=== PATIENT | female | born 1975 | race Caucasian/White ===

== ENCOUNTER 2021-06-26 07:52 | Outpatient (REF) | payer OTHER, SELFPAY ==
[2021-06-26 11:13] LABS: MANUAL DIFF FLAG NO
[2021-06-26 11:38] LABS: Basophils Percent Auto 0.4 % (0-2); Eosinophils Absolute Auto 0.1 X10*3/uL (0.0-0.4); Eosinophils Percent Auto 2.1 % (0-4); Hematocrit 41.4 % (37.0-47.0); Hemoglobin 13.4 g/dl (12.0-16.0); Imm Gran Abs Auto 0.01 X10*3/uL (0.00-0.03); Imm Gran Pct Auto 0.2 % (0.0-0.4); Lymphocytes Absolute Auto 1.8 X10*3/uL (1.2-4.9); Mean Corpuscular HGB Conc 32.4 g/dl (31.0-35.0); Mean Corpuscular Hemoglobin 29.2 pg (27.0-33.0); Mean Corpuscular Volume 90.2 fL (80.0-98.0); Mean Platelet Volume 9.8 fL (9.4-12.3); Monocytes Absolute Auto 0.4 X10*3/uL (0.1-1.2); Monocytes Percent Auto 6.6 % (2-11); Neutrophils Absolute Auto 3.1 x10*3/uL (2.0-8.3); Neutrophils Percent Auto 57.7 % (45-73); Platelet Count 270 X10*3/uL (160-400); Red Blood Count 4.59 X10*6/uL (4.20-5.50); Red Cell Distribution Width 12.2 % (11.0-16.0); White Blood Count 5.3 X10*3/uL (4.8-10.8)
[2021-06-26 12:25] LABS: Alanine Aminotransferase 21 U/L (0-31); Albumin Level 4.3 g/dL (3.5-5.0); Alkaline Phosphatase 89 U/L (39-117); Anion Gap 11 (12-20); Aspartate Amino Transferase 15 U/L (5-31); Bilirubin Total 0.3 mg/dL (0.0-1.0); Blood Urea Nitrogen 14 mg/dL (9-16); Calcium 9.4 mg/dL (8.4-10.2); Carbon Dioxide 27 mmol/L (22-29); Chloride 105 mmol/L (96-108); Cholesterol 229 mg/dL; Estimated Glomerular Filt Rate > 60; Glucose Fasting 94 mg/dL (60-99); HDL Cholesterol 47 mg/dL; LDL Cholesterol Calculated 159 mg/dl; Potassium 4.3 mmol/L (3.3-5.1); Sodium 139 mmol/L (135-145); Total Protein 6.9 g/dL (6.5-8.0); Triglycerides 118 mg/dL
[2021-06-26 12:47] LABS: Vitamin D 25-OH Total 32.5 ng/mL (>30)
[2021-06-26 13:20] LABS: Vitamin B12 562 pg/mL (200-900)
== END 2021-06-26 07:53 | disposition home or self-care (01) ==
LOC: HO.MANLDS 07:52
PROVIDERS: PCP Internal Medicine; Visit Provider Internal Medicine
DX: Z00.00 Encounter for general adult medical examination without abnormal findings (principal)
CPT/HCPCS: 36415; 80053; 80061; 82306; 82607; 85025

== ENCOUNTER 2023-02-03 10:54 | Outpatient (REF) | payer OTHER, SELFPAY ==
[2023-02-03 13:17] LABS: MANUAL DIFF FLAG NO
[2023-02-03 13:47] LABS: Basophils Percent Auto 0.4 % (0-2); Eosinophils Absolute Auto 0.1 X10*3/uL (0.0-0.4); Eosinophils Percent Auto 1.6 % (0-4); Hematocrit 39.6 % (37.0-47.0); Hemoglobin 13.2 g/dl (12.0-16.0); Imm Gran Abs Auto 0.02 X10*3/uL (0.00-0.03); Imm Gran Pct Auto 0.4 % (0.0-0.4); Lymphocytes Absolute Auto 1.8 X10*3/uL (1.2-4.9); Mean Corpuscular HGB Conc 33.3 g/dl (31.0-35.0); Mean Corpuscular Hemoglobin 29.2 pg (27.0-33.0); Mean Corpuscular Volume 87.6 fL (80.0-98.0); Monocytes Absolute Auto 0.3 X10*3/uL (0.1-1.2); Monocytes Percent Auto 6.4 % (2-11); Neutrophils Absolute Auto 2.9 x10*3/uL (2.0-8.3); Neutrophils Percent Auto 57.2 % (45-73); Platelet Count 224 X10*3/uL (160-400); Red Blood Count 4.52 X10*6/uL (4.20-5.50); Red Cell Distribution Width 12.1 % (11.0-16.0); White Blood Count 5.1 X10*3/uL (4.8-10.8)
[2023-02-03 14:37] LABS: Alanine Aminotransferase 21 U/L (0-31); Albumin Level 4.2 g/dL (3.5-5.0); Alkaline Phosphatase 81 U/L (39-117); Anion Gap 10 (12-20); Aspartate Amino Transferase 20 U/L (5-31); Bilirubin Total 0.3 mg/dL (0.0-1.0); Blood Urea Nitrogen 10 mg/dL (9-16); Calcium 9.2 mg/dL (8.4-10.2); Carbon Dioxide 27 mmol/L (22-29); Chloride 106 mmol/L (96-108); Cholesterol 211 mg/dL (<200); Estimated Glomerular Filt Rate > 60; Glucose Random 87 mg/dL (60-115); HDL Cholesterol 46 mg/dL (>40); LDL Cholesterol Calculated 146 mg/dL (<100); Potassium 3.9 mmol/L (3.3-5.1); Sodium 139 mmol/L (135-145); Total Protein 6.9 g/dL (6.5-8.0); Triglycerides 98 mg/dL (<150)
[2023-02-03 14:55] LABS: Thyroid Stimulating Hormone 1.27 uIU/mL (0.32-4.0); Vitamin D 25-OH Total 34.3 ng/mL (>30)
== END 2023-02-03 10:55 | disposition home or self-care (01) ==
LOC: HO.MANLDS 10:54
PROVIDERS: Visit Provider Internal Medicine
DX: Z00.00 Encounter for general adult medical examination without abnormal findings (principal)
CPT/HCPCS: 36415; 80053; 80061; 82306; 84443; 85025

== ENCOUNTER 2023-08-14 15:09 | Outpatient (REF) | payer OTHER, SELFPAY ==
[2023-08-14 17:34] LABS: MANUAL DIFF FLAG NO
[2023-08-14 18:12] LABS: Alanine Aminotransferase 23 U/L (0-31); Albumin Level 4.4 g/dL (3.5-5.0); Alkaline Phosphatase 95 U/L (39-117); Anion Gap 15 (12-20); Aspartate Amino Transferase 18 U/L (5-31); Bilirubin Total 0.4 mg/dL (0.0-1.0); Blood Urea Nitrogen 9 mg/dL (9-16); C Reactive Protein 0.62 mg/dL (< or = 0.50); Calcium 9.9 mg/dL (8.4-10.2); Carbon Dioxide 26 mmol/L (22-29); Chloride 103 mmol/L (96-108); Estimated Glomerular Filt Rate > 60; Glucose Random 85 mg/dL (60-115); Iron 78 mcg/dL (30-160); Percent Iron Saturation 23 % (15-50); Potassium 4.7 mmol/L (3.3-5.1); Sodium 139 mmol/L (135-145); Total Iron Binding Capacity 338 mcg/dL (228-428); Total Protein 7.4 g/dL (6.5-8.0); Unsaturated Iron Binding 260 ug/dL
[2023-08-14 18:30] LABS: Ferritin 133 ng/mL (10-250); Free T4 (Free Thyroxine) 0.78 ng/dL (0.71-1.85); Thyroid Stimulating Hormone 1.47 uIU/mL (0.32-4.0)
[2023-08-14 19:17] LABS: Erythrocyte Sedimentation Rate 9 MM/HR (0-20)
[2023-08-14 19:35] LABS: Basophils Percent Auto 0.3 % (0-2); Eosinophils Absolute Auto 0.1 X10*3/uL (0.0-0.4); Hematocrit 40.3 % (37.0-47.0); Hemoglobin 13.5 g/dl (12.0-16.0); Imm Gran Abs Auto 0.02 X10*3/uL (0.00-0.03); Imm Gran Pct Auto 0.3 % (0.0-0.4); Lymphocytes Absolute Auto 1.8 X10*3/uL (1.2-4.9); Lymphocytes Percent Auto 26.5 % (20-40); Mean Corpuscular HGB Conc 33.5 g/dl (31.0-35.0); Mean Corpuscular Hemoglobin 29.7 pg (27.0-33.0); Mean Corpuscular Volume 88.8 fL (80.0-98.0); Mean Platelet Volume 9.9 fL (9.4-12.3); Monocytes Absolute Auto 0.4 X10*3/uL (0.1-1.2); Neutrophils Absolute Auto 4.4 x10*3/uL (2.0-8.3); Neutrophils Percent Auto 65.9 % (45-73); Platelet Count 240 X10*3/uL (160-400); Red Blood Count 4.54 X10*6/uL (4.20-5.50); Red Cell Distribution Width 11.9 % (11.0-16.0); White Blood Count 6.7 X10*3/uL (4.8-10.8)
== END 2023-08-14 15:10 | disposition home or self-care (01) ==
LOC: HO.MANLDS 15:09
PROVIDERS: Visit Provider Physician Assistant
DX: R06.09 Other forms of dyspnea (principal); R00.0 Tachycardia, unspecified
CPT/HCPCS: 36415; 80053; 82728; 83540; 84439; 84443; 85025; 85652; 86140

== ENCOUNTER 2024-08-26 07:34 | Outpatient (REF) | payer OTHER, SELFPAY ==
--- OUTSIDE RECORDS SUMMARY | 2024-08-26 07:37 | XMS_ITS | Continuity of Care Document ---
Author Organization [facility], [facility] Address [address] [place] [address] Assessment Encounter Date Assessment Date Assessment LastModified by Organization Details LastModified Time 08/24/2024 08/24/2024 [address] [place] [id number] (MEDICAL ADVISOR) MDM MODERATE MUST MEET 2 OUT OF 3 ELEMENTS: PROBLEMS, DATA OR RISK ELEMENT 1: PROBLEMS ADDRESSED 1 OR MORE CHRONIC ILLNESS WITH EXACERBATION OR 2 OR MORE STABLE CHRONIC ILLNESSES OR 1 UNDIAGNOSED NEW PROBLEM OR 1 ACUTE ILLNESS W/SYMPTOMS OR 1 ACUTE COMPLICATED INJURY ELEMENT 2: DATA MUST MEET 1 OF 3 CATEGORIES CATEGORY 1: REVIEW OF PRIOR EXTERNAL NOTES, REVIEW OF RESULTS, ORDERING OF EACH TEST, ASSESSMENT REQUIRING INDEPENDENT HISTORIAN OR CATEGORY 2: INDEPENDENT INTERPRETATION OF TESTS BY ANOTHER PHYSICIAN OR SPECIALIST OR CATEGORY 3: DISCUSSION OF MGT OR TEST INTERPRETATION W/EXTERNAL PHYSICIAN OR SPECIALIST ELEMENT 3: RISK RISK OF COMPLICATIONS AND/OR MORBIDITY OR MORTALITY OF PATIENT MANAGEMENT PROVIDER MUST THOROUGHLY DOCUMENT EACH ELEMENT THAT IS COVERED [email or web address] Not available 08/24/2024 16:51:48 Plan of Treatment Reminders Order Date Submit Date Provider Last Modified By Organization Details Last Modified Time Details Appointments None recorded. Lab YADIRA + rf (antinucle ar antibodies + rheumatoid factor), quantitati ve, serum 2024 025 [facility], [address] [place] [address], [place], [address], 17:00:21 C-reactive protein, quantitati ve, serum or plasma 2024 025 [facility], [address] [place] [address], [place], [address], 5 17:00:21 ESR (erythrocy te sedimentat ion rate), blood 2024 [facility], [address] [place] [address], [address], 5 17:00:21 lyme disease igg+igm, serum, reflex western blot 2024 [facility], [address] [place] [address], [address], 5 17:00:21 parvovirus B19 igg+igm Ab, serum 2024 [facility], [address] [place] [address], [address], 5 17:00:49 Referral None recorded. Procedures None recorded. Surgeries None recorded. Imaging MRI, knee, w/o contrast 2024 [email or web address] [facility], [address], [facility] [address], [place], [address], 16:49:16 Medication Orders None recorded. Patient TargetsNo targets recorded. Patient InstructionsNo instructions recorded. Reason for Referral None Reported. Problems Name Problem SNOMED Code Status Onset Date Resolution Date Notes Provider Name and Address Organization Details Recorded Time Mild depressio n 724459931 Active 2018 Not Available [facility] 14:43:20 Insomnia 986985340 Active 2018 Not Available [facility] 14:43:20 Vertigo 554081664 Active 2018 Not Available [facility] 14:43:20 Pain of hip region 14028163 Active 2018 Not Available [facility] 14:43:20 Low back pain 807883850 Active 2018 Not Available [facility] 14:43:20 Immunoglo bulin A1 deficienc y 401139601 Active 2018 Not Available [facility] 14:43:20 Hypersomn ia with sleep apnea 06284532 Active 2020 Not Available [facility] 14:43:20 Acute maxillary sinusitis 92550755 Active 2021 SELENA WILHELM [address] [place], [address], [facility] 2 11:05:44 COVID-19 725444904 Active 2021 Alexis Tristan, [address] [place] [address], [address], [facility] 2 11:55:14 Pain of left shoulder joint 425253876450 97413 Active 2022 SELENA WILHELM [address] [place] [address], [address], [facility] 3 11:22:02 Influenza caused by Influenza A virus 221834839 Active 2023 SELENA WILHELM [address] [place] [address], [address], [facility] 4 11:09:31 Depressiv e disorder 98868106 Active 2023 SELENA WILHELM [address] [place] [address], [address], [facility] 4 14:57:32 Dyspnea on exertion 79461761 Active 2023 SELENA WILHELM [address] [place] [address], [address], [facility] 4 14:57:48 Tachycard ia 0837583 Active 2023 SELENA WILHELM [address] [place] [address], [address], [facility] 4 15:00:22 Immunodef iciency disorder 180217200 Active 2023 SELENA WILHELM [address] [place] [address], [address], [facility] 4 15:02:26 Lateral epicondyl itis of right humerus 364158080944 107 Active 2023 Alexis Tristan DO [address] [place] [address], [address], [facility] 4 09:58:08 Neck pain 49251720 Active 2024 SELENA WILHELM [address] [place] [address], [address], [facility] 5 15:31:41 Pain of right shoulder joint 333485972860 37196 Active 2024 SELENA WILHELM [address] [place] [address], [address], [facility] 5 15:31:51 Pain in left foot 697239109191 107 Active 2024 SELENA WILHELM [address] [place] [address], [address], [facility] 5 15:34:06 Clavicle pain 749833775 Active 2024 SELENA WILHELM [address] [place] [address], [address], [facility] 5 15:34:16 Muscle pain 52036348 Active 2024 SELENA WILHELM [address] [place] [address], [address], [facility] 5 15:37:31 Pain of multiple joints 69430499 Active 2024 Alexis Tristan DO [address] [place] [address], [address], [facility] 5 16:48:23 Problem Notes None recorded. Procedures Surgical History Date Name Laterality Status Provider Name and Address Organization Details Recorded Time 024 Corticosteroid Injection completed Alexis Tristan DO [address] [place] [address], [address], [facility] 02/16/2024 15:40:16 017 Date of Last Pap Smear completed Emely Kathleen [facility] 12/27/2018 10:37:47 Imaging Results None recorded. Procedure Notes None recorded. Medical Equipment None Reported. Allergies Allergen ID Allergen Name Allergen Category Reaction Reaction Severity Criticality Documentation Date Start Date Code Code System Note Provider Name and Address Organization Details Recorded Time 3501 bupropion Not available Not available Not available Not available 12/27/2018 28730 RxNorm easy bruis ing Janice Dallas garcia [facility] 2 10:30:52 3594 Bactrim medicatio n Not available Not available Not available 02/28/2019 08421 9 RxNorm Maxwell bp Marj Constantinogavi garcia [facility] 9 16:12:47 Medications Name Sig Start Date Stop Date Status Note LastModified by Organization Details LastModified Time amoxicillin 500 mg capsule 02/03 completed Not Available Not Available Not Available terconazole 0.4 % vaginal cream PLACE 1 APPLICATO R VAGINALLY NIGHTLY AT BEDTIME FOR 7 DAYS 06/18 completed Not Available Not Available Not Available doxycycline hyclate 100 mg capsule Take 1 capsule twice a day by oral route for 7 days. 05/13 completed Not Available Not Available Not Available azithromyci n 250 mg tablet TAKE 2 TABLETS (500 MG) BY ORAL ROUTE ONCE DAILY FOR 1 DAY THEN 1 TABLET (250 MG) BY ORAL ROUTE ONCE DAILY FOR 4 DAYS 02/03 completed Not Available Not Available Not Available citalopram 10 mg tablet TAKE 1 TABLET BY MOUTH EVERY DAY 08/13 completed Not Available Not Available Not Available meloxicam 15 mg tablet TAKE 1 TABLET BY MOUTH EVERY DAY FOR 30 DAYS 07/19 completed Not Available Not Available Not Available meclizine 12.5 mg tablet TAKE 1 TABLET BY MOUTH THREE TIMES DAILY FOR 14 DAYS 02/03 completed Not Available Not Available Not Available baclofen 20 mg tablet TAKE 1 TABLET BY MOUTH THREE TIMES A DAY NEEDED FOR 14 DAYS active Not Available Not Available No t Available cefadroxil 500 mg capsule 10/03 completed Not Available Not Available Not Available lorazepam 0.5 mg tablet Take 1 tablet 3 times a day by oral route as needed for 10 days. 08/27 completed Not Available Not Available Not Available doxycycline monohydrate 100 mg capsule 02/08 completed Not Available Not Available Not Available cephalexin 500 mg capsule 06/18 completed Not Available Not Available Not Available oseltamivir 75 mg capsule TAKE 1 CAPSULE BY MOUTH TWICE A DAY FOR 5 DAYS 08/13 completed Not Available Not Available Not Available diclofenac sodium 75 mg tablet,pauline yed release TAKE 1 TABLET BY MOUTH TWICE A DAY WITH MEALS 2024 active Not Available Not Available Not Avai lable lorazepam 1 mg tablet 12/27 completed Not Available Not Available Not Available zolpidem 10 mg tablet TAKE 1 TABLET BY MOUTH EVERY DAY FOR 14 DAYS active Not Available Not Available No t Available methylpredn isolone 4 mg tablets in a dose pack FOLLOW PACKAGE DIRECTION S 02/03 completed Not Available Not Available Not Available doxycycline hyclate 100 mg tablet 12/27 completed Not Available Not Available Not Available amoxicillin 875 mg-potassiu m clavulanate 125 mg tablet TAKE 1 TABLET BY MOUTH EVERY 12 HOURS FOR 7 DAYS 02/03 completed Not Available Not Available Not Available Afluria Quad 60 mcg (15 mcg x 4)/0.5 mL intramuscul ar susp. 03/04 completed Not Available Not Available Not Available Afluria Qd (36 mos up)(PF)60 mcg (15 mcg x4)/0.5 mL IM syringe ADM 0.5ML IM UTD 04/02 completed Not Available Not Available Not Available Vitals Date Recorded Body height Body mass index (BMI) Body weight Heart rate Oxygen saturation Oxygen saturation in Arterial blood by Pulse oximetry Systolic blood pressure Diastolic blood pressure Provider Name and Address Organization Details Last Updated DateTime 5 171.45 cm 51.2 kg/m2 444829. 67 g 94 /min 98 % 98 % 140 mm[Hg] 80 mm[Hg] Destiny Osuna [facility] 5 16:25:14 Social History Question Answer Notes LastModified by Organizat ion Details LastModified Time Tobacco Smoking Status Never Smoker Alexis Tristan, DO [address] [facility], [place], [address], [place] [facility] 12/27/2018 16:02:33 What Was The Date Of Your Most Recent Tobacco Screening? 08/24/2024 Information not available 08/24/2024 Sex: Unknown Functional Status None recorded. Mental Status None recorded. Family History Nothing Reported. Medical History No medical history recorded. Gynecological History Statement/Question Response Date of Last Pap Smear 10/21/2016 Obstetrics History GPAL:G 0 P 0 0 0 0 Immunizations Vaccine Type Date Status Note Provider Nam e and Address Organization Details Recorded Time Influenza, split virus, quadrivalent, preservative 1 completed Alexis Tristan DO [address] [place] [address], [address], [facility] 02/03/2021 16:05:34 SARS-COV-2 (COVID-19) vaccine, UNSPECIFIED 5 completed Aime Tristan [facility] 04/29/2024 09:07:55 Influenza, [place] 5 completed Aime Tristan [facility] 04/29/2024 09:08:07 Tdap 1 completed Emely Kathleen [facility] 12/27/2018 10:35:05 Influenza, split virus, quadrivalent, preservative 9 completed Janice Haynes [facility] 03/04/2019 09:16:23 Influenza, split virus, quadrivalent, preservative 0 completed Emely Kathleen [facility] 01/20/2020 15:48:23 Influenza, split virus, quadrivalent, preservative 0 completed Emely Kathleen [facility] 01/20/2020 15:48:34 COVID-19, mRNA, LNP-S, PF, 100 mcg/0.5mL dose or 50 mcg/0.25mL dose 1 completed SELENA WILHELM [address] [place] [address], [address], [facility] 08/27/2020 14:15:38 Past Encounters Encounter ID Performer Location Encounter Start Date Encounter Closed Date Diagnosis/Indication Diagnosis SNOMED-CT Code Diagnosis ICD10 Code Diagnosis Note [id number] Alexis Tristan DO [facility] [address],[place] [address] 08/24/2024 16:16:16 08/24/2024 16:51:56 Depression screening 859475414 Z13.31 neg Instabilit y of joint of right knee 6232637790 762419 M23.51 Pain of mu ltiple joints 79969651 M25.50 Health Concerns Section Related Observation LastModified by Organization Detai ls LastModified Time None Recorded Concern Status LastModified by Organization Details LastModified Time None Recorded Payers Encounter Date Sequence Insurance Name Policy Number Policy Barrios Covered Member ID Barrios Member ID Guarantor Name 08/24/2024 1 [facility] (O) [id number] 1 Jed Hollis [id number] Venecia tafoya OBGyn Episode No OBEpisode recorded.
--- OUTSIDE RECORDS SUMMARY | 2024-08-26 07:37 | XMS_ITS | Data Portability ---
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 Reminded 11 days to full protection from with Mirena or Emily. Reasons to comeback include increasing pain, discharge, fever. Nothing in vagina 3-5 days . Return to office for string check if cannot find string 6 weeks. edison Not available 10/20/2016 15:48:46 Plan of Treatment Reminders Order Date Submit Date Provider Last Modified By Organization Details Last Modified Time Details Appointments None recorde d. Lab CT + NG RNA, PCR, unspeci fied specime n 2016 017 [facility], [address] [facility], [place], [address], 7 13:58:17 biopsy, tissue - skin tag Lt hip/low er back 2016 017 [facility] [address] [place], [address], 7 11:14:57 Referral general surgeon referra l - pt with bleedin g pyogeni c granulo ma left posteri or waste at pant line, acitvel y bleedin g. confirm ed by [place] [facility] 2016 017 JAGUAR Olivera MD, [address], [place], [address], 7 08:33:28 Procedures destruc tion of benign lesions (PROC) 2016 017 mmastroberti Not available 7 10:38:00 Surgeries None recorde d. Imaging None recorde d. Medication Orders acyclov ir 800 mg tablet 2016 017 INTERFACE [id number], [address] [place], [address], 7 10:49:26 Patient TargetsNo targets recorded. Patient InstructionsNo instructions recorded. Reason for Referral General Surgeon Referral for Pyogenic granuloma of skin pt with bleeding pyogenic granuloma left posterior waste at pant line, acitvely bleeding. confirmed by biopsy [place] [facility] Referring Physician: Bobbi Freeman, Family Medicine, Encounter Date: 08/26/2016 Results Created Date Observation Date Name Description Value Unit Range Abnormal Flag Note LastModifiedBy Organization Detail LastModifiedTime 10/22/19 17 10/22/2016 CT + NG RNA, PCR, unspe cifie d speci men N. gonorrhoeae Neg negati ve Not Available [address], [address], 10/22/2016 13:58:16 10/22/19 17 10/22/2016 CT + NG RNA, PCR, unspe cifie d speci men C. trachomatis Neg negati ve Not Available [address], [address], 10/22/2016 13:58:16 Result Notes None recorded. Problems Name Problem SNOMED Code Status Onset Date Resolution Date Notes Provider Name and Address Organization Details Recorded Time Diarrhea 34466457 Completed 03/02/2013 Not Available [facility] 3 02:02:16 Major depression , melancholi c type 921642193 Completed 01/28/2016 Isabella Barcenas NP [address] [place] [address], [phone] , [facility] 6 12:13:54 Low back pain 326975933 Active Not Available [facility] 3 03:14:31 Acute pharyngiti s 685612392 Completed 03/02/2013 Not Available [facility] 3 02:01:17 Abdominal pain 40046519 Completed 03/02/2013 Not Available [facility] 3 02:01:23 Verruca vulgaris 39460552 Completed 03/02/2013 Not Available [facility] 3 02:02:14 Insomnia 402173055 Active Not Available [facility] 3 03:14:31 Benign paroxysmal positional vertigo 293231400 Active Not Available [facility] 3 03:14:31 Pain of hip region 02056722 Active JUDY Luna [address] [place] [address], [phone] , [facility] 6 10:59:10 Mild recurrent major depression 81457109 Active 2015 Isabella Barcenas NP [address] [place] [address], [phone] , [facility] 6 12:13:50 Problem Notes None recorded. Procedures Surgical History Date Name Laterality Status Provider Name and Address Organization Details Recorded Time 7 POC hCG Testing completed Brenda Villarreal [facility] [place] 10/20/2016 15:56:14 7 IUD Insertion completed Moi Valverde MD [address] [place] [address], [phone], [facility] 10/21/2016 15:06:03 7 Skin Tag Removal (up to 15) completed JUDY Luna [address] [place] [address], [phone], [facility] 08/13/2016 15:39:59 6 POC Strep Testing completed Rupali Lowry LPN [facility] [place] 04/02/2016 11:37:01 6 POC Strep Testing completed Alize Nguyễn [place] [facility] [place] 01/24/2016 11:44:04 6 POC Urinalysis Testing completed Alize Nguyễn, [facility] 01/24/2016 11:44:11 6 Carbon Monoxide Testing completed Rupali Lowry LPN [facility] [place] 07/25/2015 10:03:46 2 IUD Insertion completed Moi Valverde MD [address] [place], [address], [facility] 10/25/2011 13:52:19 2 IUD Removal completed Moi Valverde MD [address] [place] [address], [phone], [facility] 10/25/2011 13:52:19 Imaging Results None recorded. Procedure Notes None recorded. Medical Equipment None Reported. Allergies Allergen ID Allergen Name Allergen Category Reaction Reaction Severity Criticality Documentation Date Start Date Code Code System Note Provider Name and Address Organization Details Recorded Time [id number] bupropion Not available Not available Not available Not available 04/02/2016 13888 RxNorm feels like I'm in a tunne l Rupali Lowry LPN [facility] 6 11:02:05 No known drug allergies Medications Name Sig Start Date Stop Date Status Note LastModified by Organization Details LastModified Time amoxicill in 500 mg capsule TAKE ONE CAPSULE BY MOUTH EVERY 8 HOURS UNTIL FINISHED 06/17 completed Not Available Not Available Not Available Augmentin 875 mg-125 mg tablet Take 1 tablet every 12 hours by oral route for 7 days. 03/12 completed Not Available Not Available Not Available trazodone 50 mg tablet Take 1 or 2 tablet(s ) at night for sleep by oral route. 08/26 completed Not Available Not Available Not Available azithromy abbi 250 mg tablet Take 2 tablet(s ) today,th en 1 tab on day 2-5 active Not Available Not Available No t Available sumatript an 100 mg tablet TAKE 1 TABLET BY MOUTH EVERY DAY NEEDED active Not Available Not Available No t Available Diflucan 150 mg tablet Take 1 tablet(s ) by oral route for 1 day; if still symptoma tic on day3, ok to take 2nd pill 2012 active Not Available Not Available Not Avai lable metronida zole 500 mg tablet Take 1 tablet twice a day by oral route for 7 days. 12/02 completed Not Available Not Available Not Available acyclovir 800 mg tablet Take 1 tablet every 4 hours by oral route for 7 days. 2016 active Not Available Not Available Not Avai lable sodium chloride 0.9 % irrigatio n solution active 09/14/16 not taking SR Not Available Not Available Not Available oxycodone -acetamin ophen 5 mg-325 mg tablet TAKE 1 TABLET BY MOUTH EVERY 4-6 HOURS NEEDED FOR PAIN active Not Available Not Available No t Available amoxicill in 875 mg tablet Take 1 tablet every 12 hours by oral route for 7 days. active Not Available Not Available No t Available citalopra m 20 mg tablet Take 1/2 tablet qd x 7d, then 1tab qd 2012 active pt stopped med Not Available Not Available Not Available lorazepam 0.5 mg tablet Take 1 tablet twice a day by oral route as needed for 1 day. 08/06 completed Not Available Not Available Not Available antipyrin e-benzoca ine 5.4 %-1.4 % ear drops Instill 2 drops every 2 hours by otic route for 5 days. 06/26 completed Not Available Not Available Not Available hydrocodo ne 5 mg-acetam inophen 500 mg tablet Take 1 tablet every 4 hours by oral route. 2008 active Not Available Not Available Not Avai lable codeine 10 mg-guaife nesin 100 mg/5 mL oral liquid Take 10 mL every 4 hours by oral route. 2012 active Not Available Not Available Not Avai lable zolpidem 5 mg tablet Take 1 tablet every day by oral route at bedtime for 30 days. 05/10 completed Not Available Not Available Not Available diazepam 10 mg tablet TAKE 1 TABLET BY MOUTH 1 HOUR BEFORE SURGERY WITH SMALL SIP OF WATER active Not Available Not Available No t Available Ciprodex 0.3 %-0.1 % ear drops,celena pension Instill 4 drops twice a day by otic route for 7 days. 05/02 completed Not Available Not Available Not Available bupropion HCl XL 150 mg 24 hr tablet, extended release TAKE 1 TABLET BY MOUTH EVERY DAY 04/02 completed Not Available Not Available Not Available multivita min 1 tab daily active Not Available Not Available No t Available Fluvirin (PF) 45 mcg (15 mcg x 3)/0.5 mL IM syringe inject 0.5 millilit er intramus cularly active Not Available Not Available No t Available Afluria (PF) 45 mcg(15 mcg x 3)/0.5 mL intramusc ular syringe inject 0.5 millilit er intramus cularly 08/26 completed Not Available Not Available Not Available Vitals Date Recorded Body height Oxygen saturation Oxygen saturation in Arterial blood by Pulse oximetry Body temperature Provider Name and Address Organization Details Last Updated DateTime 06/17/2016 170.18 cm 96 % 96 % 98.5 [degF] Ingrid King [facility] 7 10:20:26 Date Recorded Systolic blood pressure Diastolic blood pressure Provider Name and Address Organization Details Last Updated DateTime 06/17/2016 120 mm[Hg] 84 mm[Hg] Jed Hannah MD [address] [place] [address], [phone], [facility] [place] 06/17/2016 10:47:38 Date Recorded Body height Heart rate Systolic blood pressure Diastolic blood pressure Provider Name and Address Organization Details Last Updated DateTime 08/12/2016 170.18 cm 66 /min 120 mm[Hg] 68 mm[Hg] Rupali Lowry LPN [facility] [place] 08/12/2016 10:34:59 Date Recorded Body height Systolic blood pressure Diastolic blood pressure Provider Name and Address Organization Details Last Updated DateTime 08/26/2016 170.18 cm 116 mm[Hg] 72 mm[Hg] Jenifer Jj [facility] [place] [facility] 08/26/2016 11:57:08 Date Recorded Body height Heart rate Systolic blood pressure Diastolic blood pressure Provider Name and Address Organization Details Last Updated DateTime 09/14/2016 170.18 cm 80 /min 110 mm[Hg] 58 mm[Hg] Minal Kearns [facility] 09/14/2016 10:43:16 Date Recorded Body height Systolic blood pressure Diastolic blood pressure Provider Name and Address Organization Details Last Updated DateTime 10/20/2016 170.18 cm 130 mm[Hg] 80 mm[Hg] Brenda Villarreal [facility] [place] 10/20/2016 15:59:00 Social History Question Answer Notes LastModified by Organizat ion Details LastModified Time Tobacco Smoking Status Never Smoker Not Available [facility] 02/27/2011 04:49:55 Do You Wear A Helmet When Biking? Yes Information not available 01/03/2015 What Is Your Level Of Caffeine Consumption? Moderate 01/03/15-2 Cups Coffee-ac Information not available 01/03/2015 How Much Tobacco Do You Chew? None Information not available 10/17/2014 What Type Of Diet Are You Following? REGULAR 01/03/15-m ore Veggies-a c Information not available 01/03/2015 Which Illicit Or Recreational Drugs Have You Used? No Information not available 01/03/2015 Education 4 Year College Information not available 01/03/2015 How Many Days In The Past Year Have You Had A Heavy Drinking Consumption (4+ Female, 5+ Male)? 0 Information not available 10/17/2014 Are There Any Guns Present In Your Home? No Information not available 01/03/2015 Live Alone Or With Others? With Others Information not available 01/03/2015 Patient Has Health Care Proxy Signed And In Chart No 01/03/15-f orms Given-ac Information not available 01/03/2015 Marital Status Information not available 02/27/2011 Mosquito Repellent Used Routinely Yes Information not available 01/03/2015 How Many Children Do You Have? 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 No Information not available 01/03/2015 Smoke Alarm In Home Yes Information not available 01/03/2015 What Types Of Sporting Activities Do You Participate In? No Information not available 01/03/2015 General Stress Level High 01/03/15-t remendous Stress-ac [email or web address] Information not available 09/21/2014 Do You Use Sunscreen Routinely? Yes Information not available 01/03/2015 Sex: Unknown Functional Status Question Answer Note LastModified by Organizat ion Details LastModified Time What is your level of alcohol consumption? 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 Family History Nothing Reported. Medical History No medical history recorded. Gynecological HistoryNo gynecological history recorded. Obstetrics History GPAL:G 0 P 0 0 0 0 Immunizations Vaccine Type Date Status Note Provider Nam e and Address Organization Details Recorded Time Influenza, split virus, quadrivalent, PF 3 completed Not Available [facility] 04/30/2019 02:18:56 influenza, seasonal, intradermal, preservative free 3 completed Not Available [facility] 05/14/2019 02:10:38 Influenza, split virus, quadrivalent, PF 6 completed Rupali Lowry LPN [facility] 05/09/2015 10:46:46 influenza, unspecified formulation 6 completed Abbie Umanzor [place] null, [facility] [place] 01/21/2016 08:21:13 influenza, unspecified formulation 9 completed SHANE DodgeLa Nena [facility] 02/23/2019 09:39:11 Influenza, split virus, trivalent, preservative 1 completed Not Available [facility] 04/30/2019 02:18:06 Tdap 1 completed Not Available [facility] 04/30/2019 02:27:45 Past Encounters Encounter ID Performer Location Encounter Start Date Encounter Closed Date Diagnosis/Indication Diagnosis SNOMED-CT Code Diagnosis ICD10 Code Diagnosis Note [id number] Ok Mckee MD , [facility], [address] [place] [address] 08/17/2006 17:51:21 08/18/2006 08:19:33 [id number] Ok Yoo MD , [facility], [address] [place] [address] 08/24/2008 14:58:56 08/29/2008 10:37:17 [id number] Umang Pierre MD , [facility], [address] [place] [address] 08/30/2008 12:31:54 08/31/2008 11:20:06 [id number] ELVER Hodges, [facility], [address] [place] [address] 06/11/2009 11:30:13 06/13/2009 10:34:09 [id number] [facility] Radiology , [facility] [address] [place] [address] 06/11/2009 14:09:31 06/13/2009 15:04:01 [id number] ELVER Johnson, [facility], [address] [place] [address] 12/04/2009 14:27:50 12/06/2009 11:09:33 [id number] ELVER Johnson, [facility], [address] [place] [address] 05/10/2010 08:24:42 05/10/2010 11:57:57 [id number] ELVER Johnson, [facility], [address] [place] [address] 06/11/2010 16:08:22 06/17/2010 09:38:11 [id number] ELVER Johnson, [facility], [address] [place] [address] 11/06/2010 16:46:09 11/06/2010 17:28:05 [id number] ELVER Hodges, [facility], [address] [place] [address] 11/18/2010 12:03:30 11/18/2010 13:06:12 [id number] MD GAURI Posada, [facility], [address] [place] [address] 01/27/2011 08:15:49 01/27/2011 09:38:49 [id number] [facility] RADIOLOGY [facility] [address] [place] [address] 01/27/2011 08:43:06 01/28/2011 14:49:57 [id number] JUDY Luna, [facility], [address] [place] [address] 08/06/2011 11:33:53 08/06/2011 12:37:05 [id number] JUDY Luna , [facility], [address] [place] [address] 08/20/2011 16:38:25 08/20/2011 17:35:25 [id number] JUDY Luna FP, [facility], [address] [place] [address] 09/10/2011 16:40:48 09/11/2011 10:33:10 [id number] JUDY Luna , [facility], [address] [place] [address] 09/24/2011 07:30:47 09/24/2011 08:13:20 [id number] Nisha Zarate MD , [facility], [address] [place] [address] 10/21/2011 14:29:42 10/22/2011 15:08:01 [id number] Moi Valverde MD , [facility], [address] [place] [address] 10/23/2011 15:45:46 10/23/2011 16:56:49 [id number] JUDY Luna , [facility], [address] [place] [address] 04/14/2012 09:34:24 04/14/2012 11:08:51 [id number] Ever Byrne MD Radiology , [facility] [address] [place] [address] 04/14/2012 10:33:48 04/14/2012 10:54:09 [id number] JUDY Luna , [facility], [address] [place] [address] 05/10/2012 15:50:53 05/10/2012 16:35:41 [id number] JUDY Newell-RIP , [facility], [address] [place] [address] 06/21/2012 10:00:07 06/21/2012 10:41:12 [id number] Nhi Silva MD FP, [facility], [address] [place] [address] 06/22/2012 08:26:25 06/22/2012 09:10:53 [id number] Rebecca Key MD , [facility], [address] [place] [address] 03/05/2013 09:35:41 03/07/2013 11:22:17 Otitis media 59882671 Swelling of eyelid 270181812 [id number] JUDY Luan , [facility], [address] [place] [address] 03/21/2013 15:27:54 03/21/2013 16:51:31 Adult health examination 413531601 see Risk Assessment and Lifestyle Change Counseling section above 37 yo F seen for PHA & PAP, HX of depression -treated w/Citalopr am & stable, HX of insomnia & LBP, c/o numbnessof R greater toe-advise d to try different foot wear Counseling [id number] Major depr ession, melancholic type 852555948 Encouraged to see MH therapist- referral done Influenza vaccine needed [id number] Nhi Silva MD , [facility], [address] [place] [address] 03/31/2013 13:46:38 03/31/2013 14:34:37 Candidiasis of vagina 51991083 Symptoms, exam and microcsopy c/w herbert; pt has had this in the past; discussed optons for treatment - opts for oral diflucan. Full PARQ held and pt wishes to proceed with treatment. Acute urticaria 642146506 Discussed mild erythema over anterior neck. No known precipitat nt other than using 's seat belt. No airway involvemen t. Worsening slightly, though not severe. Advised H2 and H1 blockers, topical hydrocorti sone and ice packs; return to clinic if worsening (vs go to ED if severe); reminded of abalone sheller MD and weekend hours. [id number] JUDY Luna , [facility], [address] [place] [address] 04/25/2013 07:25:56 04/25/2013 08:09:42 Major depression, melancholic type 977750766 Currently on Citalopram 20 mg w/some improvemen t. 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 F/U in 1 month. Otitis externa [id number] R ight, will order ear drops, if no improvemen t in 5-7 d. 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 F/U in 3 months.or sooner prn Laceration - injury [id number] Bacitracin applied to [employer] on L foot & DSD applied, keep area clean and dry continue with bacitracin , watch for any redness or swelling and report accordingl y. [id number] JUDY Luna, [facility], [address] [place] [address] 06/22/2013 07:19:07 06/22/2013 08:24:19 Pain of joint of hand 309275889 Adeel obtain labs, r/o infection, will obtain an xray, meanwhile symptomati c treatment with warm compresses to affected area, Tylenol and/or ibuprofen as directed for pain. If no improvemen t in the next 5-7 days return to office for reevaluati on. Patient agrees with plan [id number] JUDY Luna, [facility], [address] [place] [address] 12/15/2013 15:32:59 12/15/2013 16:03:53 Strain of trapezius muscle 527202796 Conservati ve treatment measures w/ice alternatin g w/heat, try a deep muscle rub, stretching exercises such as shoulder rolls & ibuprofen 200 mg 3 tabs TID for the next several days. [id number] Isabella Barcenas NP , [facility], [address] [place] [address] 09/21/2014 11:20:55 09/22/2014 08:51:01 Major depression, melancholic type 144576564 Pt under extreme stress and not sleeping. f/u with pcp in 2-4 weeks. Headache 14048352 Mornin g h/a is getting better.Howe ssured pt her symptoms weren't consistent with a brain tumor. Could be migraine. Could be related to wisdom teeth that she needs removed. No s/s infection. [id number] JUDY Luna, [facility], [address] [place] [address] 10/17/2014 07:31:59 10/17/2014 08:19:52 Major depressive disorder 704791562 At length discussion regarding her home situation which is causing her increased depression & anxiety. Continue on Bupropion as previously ordered. Continue on Trazodone for s/s of insomnia related to depression . F/U in 1 m. or sooner prn. [id number] JUDY Luna, [facility], [address] [place] [address] 01/03/2015 08:27:02 01/03/2015 09:44:25 Adult health examination 398297519 see Risk Assessment and Lifestyle Change Counseling section above 39 yo F seen for PHA, HX of depression -treated w/Citalopr am-dealing w/marital issues which creates in stability, HX of insomnia & LBP HCM needs discussed including need to make time for self care-exerc ise, healthy food choice & portion control. Return in 1 y for annual exam. Labs ordered as written below. Counseling [id number] Major depr ession, melancholic type 405313166 Encouraged to see MH therapist- declines at this time d/t time management & she is only one working in the household. Continue on Well butrin. Influenza vaccine needed [id number] JUDY Luna, [facility], [address] [place] [address] 05/09/2015 10:20:58 05/09/2015 11:31:55 Acute upper respiratory infection 86618803 J06.9 Educated patient that URI is a viral illness of the upper airways. It is not bacterial and does not benefit from antibiotic s. Average duration of URI is 7-10 days but in a recent trial, treatment at 7-10 days of illness with antibiotic s, intranasal steroids, or placebo did not alter natural history at 3 weeks. Recommende d symptomati c treatments including NSAIDS, semi-uprig ht sleep position, antihistam nida at HS, limited course of nasal sympathomi metics and/or cough syrups, and nasal saline rinses with soft squeeze bottle or Neti pot. Return for fevers > 101 for 3 days, worsening sinus pain, or failure to resolve in 2-4 weeks. Pharyngitis 975930666 J0 2.9 [id number] JUDY Luna , [facility], [address] [place] [address] 07/25/2015 09:23:50 07/25/2015 10:44:43 Major depression, melancholic type 312326396 F32.9 At length discussion regarding her current issues surroundin g anxiety & depression . Encouraged to see therapist- declines at this time d/t time management & she is only one working in the household. Meds reordered as written below. Plan f/f in 2 m. or sooner PRN Pain of elbow region [phone] M25.521 R elbow pain, probable tendinitis , avoid using mouse if possible, advised rest, ice & Ibuprofen 600-800 mg TID to be taken w/food Pain of hip region 77525 002 M25.552 Discussed stretching , getting up frequently from desk to stretch, ice & Ibuprofen as directed. If no improvemen t in 2-3 w. may need to consider PT. [id number] Moi Valverde MD , [facility] [facility], [address] [place] [address] 08/21/2015 17:30:08 08/23/2015 10:37:58 Herpes zoster [id number] B02.9 reassured; discussed contagion (minimal) and what to expect; discussed stress she declined ton increase meds at this time despite low doses; [id number] Ck Rob MD , [facility], [address] [place] [address] 01/24/2016 10:51:08 01/24/2016 12:23:22 Upper respiratory infection [id number] J06.9 Pt reassured that this is most likely viral and needs to run its course. Work note given. Pharyngitis [id number] J0 2.9 Reasured, neg quick strep. Increased frequency of urination 528664989 R35.0 reassured that UA was normal. Mild recur rent major depression [id number] F33.0 Pt under alot of stress and worried over not feeling well and always being tired. Worried as being the breadwinne r in the family and has disabled and 2 kids to are for. Will have her see Dr. Posadas after my visit. [id number] JUDY Luna , [facility], [address] [place] [address] 04/02/2016 10:38:45 04/02/2016 11:40:40 Adult health examination [id number] Z00.00 see Risk Assessment and Lifestyle Change Counseling section above40 yo F seen for PHA, HX of depression -treated w/Citalopr am-dealing well w/home stressors, HCM needs discussed including need to make time for self care-exerc ise, healthy food choice & portion control. Return in 1 y for annual exam. Counseling 833814313 Z71 .9 Common cold 52613571 J00 Cold self care measures reviewed and encouraged (fluids, steam inhalation , adequate rest). F/U if sx worsen or aren't resolving. Screening for malignant neoplasm of cervix 309002688 Z12.4 [id number] Jed Hannah MD , [facility], [address] [place] [address] 06/17/2016 10:06:44 06/17/2016 10:32:55 Inflammation of larynx caused by virus 535947647 J04.0 voice rest,hot liquids call if worse. [id number] JUDY Luna , [facility], [address] [place] [address] 08/12/2016 10:23:14 08/12/2016 11:16:20 Skin tag 071113405 L91.8 L hip w/vascular skin tag, removed as noted in procedure note, DSD w/Bacitrac in applied, instructio ns for daily dsg. change given. return in 1 w. for suture removal. Mild recur rent major depression 75419285 F33.0 Stable, no meds at this time. [id number] SONIA Newell , [facility], [address] [place] [address] 08/26/2016 11:49:51 08/26/2016 12:32:11 Pyogenic granuloma of skin 76607112 L98.0 has been treated with silver nitrate and biopsy in clinic.reo ccurance, actively irritated and bleeding.r eferred to surgery for removal. [id number] Moi Valverde MD , [facility], [address] [place] [address] 09/14/2016 10:37:45 09/14/2016 10:52:27 Herpes zoster 1285170 B02.9 reassured; discussed contagion (minimal) and what to expect; discussed stress she declined ton increase meds at this time despite low doses; [id number] Moi Valverde MD , [facility], [address] [place] [address] 10/20/2016 14:48:41 10/21/2016 13:56:12 Insertion of intrauterine contraceptive device [id number] Z30.430 Venereal d isease screening 611344918 Z11.3 Health Concerns Section Related Observation LastModified by Organization Detai ls LastModified Time None Recorded Concern Status LastModified by Organization Details LastModified Time None Recorded Advance Directives Directive None Recorded Payers Encounter Date Sequence Insurance Name Policy Number Policy Barrios Covered Member ID Barrios Member ID Guarantor Name 06/17/2016 1 [facility] ([facility] [place] [id number] Venecia Ramirez [id number] Venecia Ramirez 08/12/2016 1 [facility] ([facility] [place] [id number] Venecia Ramirez [id number] Venecia Ramirez 08/26/2016 1 [facility] ([facility] [place] [id number] Venecia Ramirez [id number] Venecia Ramirez 09/14/2016 1 [facility] ([facility] [place] [id number] Venecia Ramirez [id number] Venecia Ramirez 10/20/2016 1 [facility] ([facility] [place] [id number] Venecia Ramirez [id number] Venecia Ramirez Notes Date Note Type Note Provider Name and Address Organization Details Recorded Time 06/17/2016 text/html has cold sx for 2 weeks. hoarse voice, for a few days bloody nasal d/c. headache left forehead , has pneumonia, no fever, had s.t. yesterday, cough at night, tired. no real body ache Jed Hannah MD [address] [place], [address], [facility] 06/17/2016 10:47:44 08/12/2016 text/html Seen for ? cut o n L hip, was seen in in Feb. for ? mole or skin tag that had started to bleed uncontrollably, treated w/liquid nitrogen but area never completely resolved. Today she thinks are got caught on her pants & stated bleeding agin. Applied a pressure bandage. Karyna Erazo, [facility] [address] [place], [address], [facility] 08/13/2016 15:42:39 08/26/2016 text/html pt presents with skin growht left hip approximately at belt line. in february pt was treated with silver nitrate at urgent care,it returned and started to bleedwas removed here in clinic. seems to have grown back and now actively bleeds,in an uncomfortable placeno fever. pathology reveals pyogenic granuloma Bobbi Freeman, [facility]- [address] [place], [address], [facility] 08/28/2016 17:13:35 10/20/2016 text/html IUD InsertionRep orted bypatient.IUDPatient is here for Mirena IUD. Patient counseled on mechanism of action of IUD. Details of placement were reviewed; risks of placement were reviewed, including but not limited to rare perforation, infection and symptoms to watch for; side effects of IUD were reviewed including but not limited to increased bleeding and cramping, adaptation period of 3-6 months , hormone side effects if applicable; expulsion of IUD reviewed; patient verbalized understanding. Patient is low risk. for STD and will have GC/CHL testing at time of insertion. Patient is not due for pap smear. Patienthas nothad unprotected sex within 2 weeks and test is . Patient is not planning a in the next 2 years. Patient is parousand has had a vaginal delivery. She has no known reproductive tract abnormalities Moi Valverde MD [address] [place], [address], [facility] 10/21/2016 15:07:03 OBGyn Episode No OBEpisode recorded.
--- OUTSIDE RECORDS SUMMARY | 2024-08-26 07:37 | XMS_ITS | Data Portability ---
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 Lab YADIRA + rf (antinucle ar antibodies + rheumatoid factor), quantitati ve, serum 2024 025 [facility], [address] [place] [address], [place], [address], 17:00:21 C-reactive protein, quantitati ve, serum or plasma 2024 025 [facility], [address] [place] [address], [address], 5 17:00:21 ESR (erythrocy te sedimentat ion rate), blood 2024 [facility], [address] [place] [address], [address], 5 17:00:21 lyme disease igg+igm, serum, reflex western blot 2024 [facility], [address] [place] [address], [address], 5 17:00:21 parvovirus B19 igg+igm Ab, serum 2024 [facility], [address] [place] [address], [address], 5 17:00:49 ESR (erythrocy te sedimentat ion rate), blood 2024 025 [facility], [address] [place] [address], [address], 5 15:41:00 C-reactive protein, quantitati ve, serum or plasma 2024 025 [facility], [address] [place] [address], [address], 5 02:02:03 phosphorus , serum or plasma 2024 025 [facility], [address] [place] [address], [address], 5 15:41:00 CK (creatine kinase), total, serum 2024 [facility], [address] [place] [address], [address], 5 02:02:03 CMP, serum or plasma 2024 025 [facility], [address] [place] [address], [address], 5 02:02:03 magnesium, serum or plasma 2024 025 [facility], [address] [place] [address], [address], 5 02:02:03 PTH (parathyro id hormone), intact + calcium, serum or plasma 2024 025 [facility], [address] [place] [address], [address], 5 15:41:00 uric acid, serum or plasma 2024 025 [facility], [address] [place] [address], [address], 5 15:41:00 TSH + free T4, serum 2023 024 [facility], [address] [place] [address], [address], 4 15:02:26 CBC w/ auto diff 2023 024 [facility], [address] [place] [address], [address], 4 15:02:25 ESR (erythrocy te sedimentat ion rate), blood 2023 024 [facility], [address] [place] [address], [address], 4 15:02:26 C-reactive protein, quantitati ve, serum or plasma 2023 024 [facility], [address] [place] [address], [address], 4 15:02:26 iron + TIBC + ferritin, serum 2023 024 [facility], [address] [place] [address], [place], [address], 4 15:02:26 CMP, serum or plasma 2023 024 [facility], [address] [place] [address], [place], [address], 4 11:31:27 Referral None recorded. Procedures None recorded. Surgeries None recorded. Imaging MRI, knee, w/o contrast 2024 025 [email or web address] [facility], [address] [place] [address], [address], 5 16:49:16 XR, shoulder, 2 or more view [address] [facility], [address], [address], 5 11:13:37 XR, cervical spine, 2 or [address] [facility], [address] [place], [address], 5 09:13:22 XR, clavicle [address] [facility], [address], [address], 5 05:59:40 XR, foot, 3 or more view [address] [facility], [address], [address], 5 11:16:46 XR, chest, 2 view 2023 024 [facility], [address], [address], 4 11:39:33 US, echocardio gram - Authorizat ion approved#2 [id number] , effective 01/26/2024 - 02/24/2024 , for procedure code 49683 2023 024 [email or web address] [facility], [address] [place], [address], 4 08:16:36 exercise stress test - NOT REQUIRED Procedure codes: 99764Xgik Reference #: [id number] esolution: Completed on 08/28/2023 at 09:50 am. Call ref #[id number] . 2023 024 [email or web address] 10 [facility], [facility] [place], [address], 4 08:38:21 holter monitor - 14 day monitor 2023 024 [email or web address] 10 [facility], [address] [place] [address], [address], 4 08:38:21 Medication Orders diclofenac sodium 75 mg tablet,del ayed release 2024 025 [facility], [address] [place] [address], [address], 5 15:43:23 baclofen 20 mg tablet 2024 025 [facility]2024, [address] [place], [address], 5 15:36:13 zolpidem 10 mg tablet 2024 025 [facility]2024, [address] [place], [address], 5 15:43:25 zolpidem 10 mg tablet 2023 024 [facility]2024, [address] [place], [address], 10:04:25 meloxicam 15 mg tablet 2023 025 [facility]2025, [address] [place], [address], 15:41:01 Patient TargetsNo targets recorded. Patient Instructions Encounter Date Encounter Id Patient Instructions Last Modified By Organization Details Last Modified Time 02/09/2024 [id number] insomnia: care instructions Not available 02/09/2024 10:04:19 Reason for Referral None Reported. Results Created Date Observation Date Name Description Value Unit Range Abnormal Flag Note LastModifiedBy Organization Detail LastModifiedTime 10/27/1910/27/2023 XR, chest , 2 view No observ ation record ed. [email or web address] [facility] [address] [facility], [place], [address], 10/28/2023 11:14:22 07/20/19 25 07/17/2024 XR, clavi boogie No observ ation record ed. [email or web address] Not Available 2024 08:38:40 07/21/19 25 07/19/2024 XR, shoul ronal, 2 or more view No observ ation record ed. [facility] [address] [facility] [address], [place], [address], 07/20/2024 11:22:24 07/21/19 25 07/19/2024 XR, foot, 3 or more view No observ ation record ed. [facility] [address] [place], [address], 07/22/2024 11:47:16 07/22/19 25 07/19/2024 XR, cervi laura spine , 2 or 3 view No observ ation record ed. [email or web address] Not Available 2024 11:47:17 Result Notes None recorded. Problems Name Problem SNOMED Code Status Onset Date Resolution Date Notes Provider Name and Address Organization Details Recorded Time Mild depressio n 767327110 Active 2018 Not Available [facility] 14:43:20 Insomnia 698132153 Active 2018 Not Available [facility] 14:43:20 Vertigo 311087189 Active 2018 Not Available [facility] 14:43:20 Pain of hip region 30103663 Active 2018 Not Available [facility] 14:43:20 Low back pain 061551069 Active 2018 Not Available [facility] 14:43:20 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 2018 Not Available [facility] 14:43:20 Hypersomn ia with sleep apnea 44174520 Active 2020 Not Available [facility] 14:43:20 Acute maxillary sinusitis 14124154 Active 2021 SELENA WILHELM [address] [place] [address], [address], [facility] 2 11:05:44 COVID-19 822166089 Active 2021 Alexis Tristan DO [address] [place] [address], [address], [facility] 2 11:55:14 Pain of left shoulder joint 357267677144 12753 Active 2022 SELENA WILHELM [address] [place] [address], [address], [facility] 3 11:22:02 Influenza caused by Influenza A virus 544452913 Active 2023 SELENA WILHELM [address] [place] [address], [address], [facility] 4 11:09:31 Depressiv e disorder 71260482 Active 2023 SELENA WILHELM [address] [place], [address], [facility] 4 14:57:32 Dyspnea on exertion 24851328 Active 2023 SELENA WILHELM [address] [place], [address], [facility] 4 14:57:48 Tachycard ia 8424519 Active 2023 SELENA WILHELM [address] [place], [address], [facility] 4 15:00:22 Immunodef iciency disorder 758380454 Active 2023 SELENA WILHELM [address] [place] [address], [address], [facility] 4 15:02:26 Lateral epicondyl itis of right humerus 336161003164 107 Active 2023 Alexis Tristan DO [address] [place] [address], [address], [facility] 4 09:58:08 Neck pain 69473096 Active 2024 SELENA WILHELM [address] [place] [address], [address], [facility] 5 15:31:41 Pain of right shoulder joint 082407549345 51071 Active 2024 SELENA WILHELM [address] [place] [address], [address], [facility] 5 15:31:51 Pain in left foot 164904968398 107 Active 2024 SELENA WILHELM [address] [place] [address], [address], [facility] 5 15:34:06 Clavicle pain 199503406 Active 2024 SELENA WILHELM [address] [place] [address], [address], [facility] 5 15:34:16 Muscle pain 54928502 Active 2024 SELENA WILHELM [address] [place] [address], [address], [facility] 15:37:31 Pain of multiple joints 80305566 Active 2024 Alexis Tristan [address] [place] [address], [address], [facility] 16:48:23 Problem Notes None recorded. Procedures Surgical History Date Name Laterality Status Provider Name and Address Organization Details Recorded Time 024 Corticosteroid Injection completed Alexis Tristan, [address] [place] [address], [address], [facility] 02/16/2024 15:40:16 017 Date of Last Pap Smear completed Emely Kathleen [facility] 12/27/2018 10:37:47 Imaging Results Imaging Date Name Status LastModified by Organiz ation Details LastModified Time 10/27/2023 XR, chest, 2 view completed [email or web address] [address], [place], [address], 10/28/2023 11:14:22 07/17/2024 XR, clavicle completed Information not available 07/20/2024 08:38:40 07/19/2024 XR, shoulder, 2 or more view completed [email or web address] [address], [place], [address], 07/20/2024 11:22:24 07/19/2024 XR, foot, 3 or more view completed [email or web address] [facility] [address] [place], [address], 07/22/2024 11:47:16 07/19/2024 XR, cervical spine, 2 or 3 view completed Information not available 07/22/2024 11:47:17 Procedure Notes None recorded. Medical Equipment None Reported. Allergies Allergen ID Allergen Name Allergen Category Reaction Reaction Severity Criticality Documentation Date Start Date Code Code System Note Provider Name and Address Organization Details Recorded Time 3501 bupropion Not available Not available Not available Not available 12/27/2018 37528 RxNorm easy bruis ing Janice garcia, [facility] 2 10:30:52 3594 Bactrim medicatio n Not available Not available Not available 02/28/2019 87803 9 RxNorm Maxwell bp Marj garcia, [facility] 9 16:12:47 Medications Name Sig Start Date [...] and Address Organization Details Last Updated DateTime 4 171.45 cm 50.4 kg/m2 325111. 27 g 85 /min 98 % 98 % 142 mm[Hg] 80 mm[Hg] Rema Francis [facility] 4 14:50:15 Date Recorded Body height Body mass index (BMI) Body weight Heart rate Oxygen saturation Oxygen saturation in Arterial blood by Pulse oximetry Systolic blood pressure Diastolic blood pressure Provider Name and Address Organization Details Last Updated DateTime 4 171.45 cm 50.6 kg/m2 923918. 3 g 94 /min 99 % 99 % 128 mm[Hg] 82 mm[Hg] Rickey Pate [facility] 4 09:34:14 Date Recorded Body height Heart rate Oxygen saturation Oxygen saturation in Arterial blood by Pulse oximetry Systolic blood pressure Diastolic blood pressure Provider Name and Address Organization Details Last Updated DateTime 5 171.45 cm 100 /min 98 % 98 % 130 mm[Hg] 78 mm[Hg] Rema Francis [facility] 5 15:02:09 Date Recorded Body height Body mass index (BMI) Body weight Heart rate Oxygen saturation Oxygen saturation in Arterial blood by Pulse oximetry Systolic blood pressure Diastolic blood pressure Provider Name and Address Organization Details Last Updated DateTime 5 171.45 cm 51.2 kg/m2 504201. 67 g 94 /min 98 % 98 % 140 mm[Hg] 80 mm[Hg] Destinyhamzah Osuna [facility] 5 16:25:14 Social History Question Answer Notes LastModified by Organizat ion Details LastModified Time Tobacco Smoking Status Never Smoker Alexis Tristan [address], [address], [facility] 12/27/2018 16:02:33 What Was The Date Of Your Most Recent Tobacco Screening? 08/24/2024 [email or web address] Information not available 08/24/2024 Sex: Unknown Functional [...] quadrivalent, preservative 1 completed Alexis Tristan DO [address] [place] [address], [address], [facility] 02/03/2021 16:05:34 SARS-COV-2 (COVID-19) vaccine, UNSPECIFIED 5 completed Aime garcia [facility] 04/29/2024 09:07:55 Influenza, [place] 5 completed Aime garcia [facility] 04/29/2024 09:08:07 [facility]ap 1 [facility] 12/27/2018 10:35:05 Influenza, split virus, quadrivalent, preservative 9 [facility] 03/04/2019 09:16:23 Influenza, split virus, quadrivalent, preservative 0 completed Emely garcia [facility] 01/20/2020 15:48:23 Influenza, split virus, quadrivalent, preservative 0 completed Emely garcia [facility] 01/20/2020 15:48:34 COVID-19, mRNA, LNP-S, PF, 100 mcg/0.5mL dose or 50 mcg/0.25mL dose 1 completed SELENA WILHELM [address] [place], [address], [facility] 08/27/2020 14:15:38 Past Encounters Encounter ID Performer Location Encounter Start Date Encounter Closed Date Diagnosis/Indication Diagnosis SNOMED-CT Code Diagnosis ICD10 Code Diagnosis Note [id number] Alexis Tristan [facility] [address] [facility] [address] 12/27/2018 15:56:55 12/27/2018 16:43:51 Heel pain 0662073 M79.672 will try the heel cup and start ibuporif and tylenol Anxiety disorder 3872557 06 F41.9 long discussion re poss need for supplement s Adult heal th examination 418151802 Z00.00 [id number] Alexis Tristan [facility] [address] [facility],[place] [address] 01/28/2019 16:08:56 01/28/2019 17:04:44 Mild depression 130526099 F32.0 doing better and will cont [facility] is doing Reike and is feeling better Insomnia 355065959 G47.0 0 cont otc med Abnormal p upillary function 70268656 H57.00 will refer to optho [id number] Alexis Tristan [facility] [address] [facility] [address] 02/28/2019 15:51:56 02/28/2019 16:27:36 Folliculitis 83781053 L73.9 Serous otitis media 8032 7007 H65.91 Acute uppe r respiratory infection 75444673 J06.9 maybe at onset of uri - sx treatment recommende d [id number] Alexis Tristan [facility] [address] [facility],[place] [address] 03/04/2019 09:14:12 03/04/2019 10:10:25 Pain of hip region 67287021 M25.559 related to foot pain Pain in left foot 057226 2410 22110 M79.672 noted to flare at times will cont PT and do her home exercises Immunoglob ulin A deficiency 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 was told had when a child we will recheck quantitat level [id number] Alexis Tristan [facility] [address] [facility] [address] 05/13/2019 15:16:45 05/13/2019 16:21:05 Low back pain 360311941 M54.5 Related to foot pain Pain of hip region 39042 002 M25.559 related to foot pain Plantar fa sciitis of left foot 5738865539 8572630 M72.2 Has been getting worse, burning on Lat side of foot Will refer ortho and XR Insomnia 231911673 G47.0 0 Sleep has been poor with [place] wart Will try OTC supplement (melatonin , valerian, etc) Mild depression 12246352 3 F32.0 Doing okay but still worry at night Will add citalopram [id number] Alexis Tristan [facility] [address] [facility] [place] [address] 06/13/2019 16:33:02 06/14/2019 08:12:39 Mild depression 535618970 F32.0 Doing okay but still worry at night Will cont the citalopram at current dose 1/2 tab of 10mg Pain of hip region 51658 002 M25.559 it seems to be better now that foot is sl better Low back pain 315337342 M54.5 Related to foot pain and her hip seems to be better after a massage [id number] Alexis Tristan [facility] [address] [facility],[place] [address] 08/24/2019 16:14:11 08/24/2019 16:47:10 Mild depression 213291373 F32.0 Doing okay but still worry at night citalopram at current dose 1/2 tab of 10mg so we will increase to full 10mg Insomnia 573144396 G47.0 0 Sleep has been poor with [place] pires Will try OTC supplement (melatonin , valerian, etc) Low back pain 404946054 M54.5 Related to foot pain and her hip seems to be better after a massage [id number] Alexis Tristan [facility] [address] [facility] [facility] [address] 10/04/2019 16:24:45 10/04/2019 16:56:17 Mild depression 590391757 F32.0 Doing okay but still worry at night citalopram increase to 10mg and will continue Insomnia 530904194 G47.0 0 Sleep has been poor with [place] pires Will try OTC supplement (melatonin , valerian, etc) [id number] Alexis Tristan DO [facility] [address] [facility] [address] 11/04/2019 10:15:02 11/04/2019 11:30:40 Mild depression 889409392 F32.0 Doing very well w/ citalopram Leave at 10 mg and f/u in 1 mo Tension-type headache 39 4808635 G44.209 Encouraged OTC NSAID or tylenol PRN Encouraged reducing stress and hydrating Pain in left arm 5178859 00 M79.602 Local swelling/p ain in L triceps muscle area following trauma Will treat conservati vely with NSAID and rest [id number] Alexis Tristan [facility] [address] [facility] [address] [facility] [facility] [place] [address] 12/09/2019 15:51:06 12/09/2019 16:40:28 Mild depression 023306423 F32.0 Doing very well w/ citalopram Leave at 10 mg and f/u in 2 months Insomnia 328486952 G47.0 0 Sleep still has been poor at times Will try OTC supplement (melatonin , valerian, etc) [id number] Alexis Tristan [facility] [address] [facility] [address] 02/07/2020 16:13:57 02/07/2020 16:39:08 Mild depression 121814496 F32.0 doing ok and is going to keep it at the 10 mg of citalopram not using the lorazepam yet Insomnia 901906736 G47.0 0 Sleep still has been poor at times has not tried lorazepam Will try OTC supplement (melatonin ,/ valerian, etc) Pain of hip region 06013 002 M25.559 it seems to be better now that foot is sl better Low back pain 941794978 M54.5 Related to foot pain and her hip seems to be better after a massage yoga will help with her back [id number] Alexis Tristan [facility] [address] [facility] [address] 04/02/2020 16:14:26 04/03/2020 09:08:22 Mild depression 815143301 F32.0 doing ok and is going to keep it at the 10 mg of citalopram she feels this is fine not using the lorazepam yet Insomnia 445374405 G47.0 0 Sleep still has been fair at times has not tried lorazepam cont to try OTC supplement (melatonin ,/ valerian, etc) [id number] Alexis Tristan [facility] [address] [facility] [address] [facility] [place] [address] 06/13/2020 16:06:32 06/13/2020 16:54:14 Mild depression 328973871 F32.0 doing ok and is going to keep it at the 10 mg of citalopram she feels this is fine not using the lorazepam yet Snoring 01437134 R06.83 will neeed to be tested [id number] Alexis Tristan [facility] [address] [facility], [place] [address] 08/27/2020 14:03:51 08/28/2020 09:50:45 Pain in left arm 188438262 M79.602 r/o clot given she had the vaccine in the same arm 10 days ago [id number] Alexis Tristan [facility] [address] [facility] [place] [address] 01/11/2021 10:18:19 01/11/2021 15:12:12 Vertigo 636951380 R42 fu with trial meclizine and Audelia manuever Pain in left thumb 03369 93937 297867 M79.645 fu XR r/o fracture, dislocatio n [id number] Alexis Tristan [facility] [address] [facility] [facility] [place] [address] 06/18/2021 10:26:23 06/18/2021 11:11:24 Active or passive immunization 398877816 Z23 utd Adult heal th examination 339903548 Z00.00 doing well and is feeling much better Immunoglob ulin A deficiency 73736261 D80.2 was told had when a child we will recheck quantitat level Mild depression 33295547 3 F32.0 doing ok and is going to keep it at the 10 mg of citalopram she feels this is fine not using the lorazepam yet Dysplastic nevus of skin 068149196 D22.9 has several new lesions [id number] Alexis Tristan [facility] [address] [facility] [address] 08/06/2021 09:25:14 08/06/2021 11:18:07 Acute maxillary sinusitis 21400594 J01.01 will start on augmentin and fu if no improvemen twill also let me know if her PCR test is positive and will adjust treatment plan [id number] Alexis Tristan [facility] [address] [facility] [address] 02/03/2023 09:48:35 02/03/2023 11:30:41 Immunoglobulin A1 deficiency 151349008 D80.2 Mild depression 54314932 3 F32.0 doing ok and is going to keep it at the 10 mg of citalopram she feels this is fine not using the lorazepam yet Adult heal th examination 918451590 Z00.00 note she has not gone on to get cpap as prev ordered we need to do this as she has dswill order cpap device Obstructiv e sleep apnea syndrome 39492719 G47.33 [id number] Alexis Tristan [facility] [address] [facility],[place] [address] 08/14/2023 14:43:57 08/17/2023 08:11:48 Depression screening 139831119 Z13.31 stable Depressive disorder 3548 9007 F32.0 stable Immunodefi ciency disorder 165927033 D80.2 stable Dyspnea on exertion 6084 5006 R06.09 will set up with testing Tachycardia 4698303 R00. 0 will also run a TSH + T4 033639 Alexis Tristan [facility] [address] [facility],[place] [address] 02/09/2024 09:27:15 02/09/2024 10:32:02 Active or passive immunization [id number] Z23 utd Adult heal th examination 950761215 Z00.01 note she has not gone on to get cpap as prev ordered we need to do this as she has dswill order cpap device Pain of le ft shoulder joint 0679843413 1132659 M25.512 will order russell inj Lateral ep icondylitis of right humerus 5850003905 78651 M77.11 Insomnia 212550282 G47.0 0 Sleep still has been fair at times has not tried lorazepam cont to try OTC supplement (melatonin ,/ valerian, etc) [id number] Alexis Tristan [facility] [address] [facility],[place] [address] 02/16/2024 15:03:48 02/16/2024 15:49:49 Dyspnea on exertion 52381751 R06.09 Depression screening 171 917086 Z13.31 Pain of le ft shoulder joint 7859442735 1051597 M25.512 russell inj sheila [id number] Alexis Tristan [facility] Internal Medicine [address] [facility],[place] [address] 07/19/2024 14:32:05 07/19/2024 15:55:07 Neck pain 33541746 M54.2 Pain of le ft shoulder joint 6570931554 7169205 M25.512 Pain in left foot 802916 6893 28001 M79.672 Clavicle pain 165583825 M25.512 Muscle pain 47451444 M79 .10 Insomnia 535905646 G47.0 9 [id number] DO Janny [facility] Internal Medicine [address] [facility],[place] [address] 08/24/2024 16:16:16 08/24/2024 16:51:56 Depression screening 910010841 Z13.31 neg Instabilit y of joint of right knee 6040509546 475242 M23.51 Pain of mu ltiple joints 06130290 M25.50 Health Concerns Section Related Observation LastModified by Organization Detai ls LastModified Time None Recorded Concern Status LastModified by Organization Details LastModified Time None Recorded Advance Directives Directive None Recorded Payers Encounter Date Sequence Insurance Name Policy Number Policy Barrios Covered Member ID Barrios Member ID Guarantor Name 08/14/2023 1 [facility] (PP[facility] [id number] 1 Jed Hollis [id number] Venecia tafoya 02/09/2024 1 [facility] (PP[facility]) [id number] 1 Jed Hollis [id number] Venecia tafoya 02/16/2024 1 [facility] (PPO) [id number] 1 Jed Hollis [id number] Venecia tafoya 07/19/2024 1 [facility] (PPO) [id number] 1 Jed Hollis [id number] Venecia tafoya 08/24/2024 1 [facility] (PPO) [id number] 1 Jed Hollis [id number] Venecia tafoya Notes Date Note Type Note Provider Name and Address Organization Details Recorded Time 4 text/html c/o sob and chest pain the patient reports that she has been noticing sob within the last few daysno triggers knownintermittently throughout the daynotes it seems to be triggered by activity usually feels racing heart sensationthe patient has had COVID a few time, noticed after this last time she has been having issueshaving some left shoulder pain, hasn't had that in a few days agreed to lab work and work up of cardiopulm process and endocrine/anemia SELENA WILHELM [address] [place] [address], [address], [facility] 08/14/2023 15:07:06 4 text/html Annual WellnessReported bypatient.Diet and Nutrition:healthy diet Fracture Risk:no history of fractures; no recent explained fracture; no sudden unexplained fractures; no previous musculoskeletal injuries Physical Activity:exercises on a regular basis; recent increase in physical activity; good physical condition Additional Lifestyle Factors:no tobacco use; no alcohol intake; stopped drinking alcohol Depression Risk:never feels sad, empty, or tearful; no loss of interest in activities; no significant changes in weight; no sleep disturbances or insomnia; no agitation; no loss of energy; no feelings of worthlessness or guilt; no thoughts of suicide; no history of depression; no history of mood disorders Hearing:no loss of hearing Vision:no vision problems Alexis Tristan DO [address] [place] [address], [address], [facility] 02/09/2024 10:05:44 4 text/html here for left shoulder OA and tendinitis Alexis Tristan DO [address] [place] [address], [address], [facility] 02/16/2024 15:44:33 5 text/html c/o L shoulder pain patient having severe left shoulder pain and clavicle painstarted a few days agocoming from her neck as well, but limited ROM in cervical spine and left shoulder due to painpain with internal rotation and flexion, pain with turning the head to the left had a cortisone shot at some point in her shoulder, ?reactionrecommended XR and lab work to determine cause she also has a new bone spur on the left foot, but it popped up in a day or twodidn't have it before then, pt is adamant she didn't have it before now will fu with patient after imaging and lab work returns SELENA WILHELM [address] [place] [address] [place], [address], [facility] 07/20/2024 13:30:32 OBGyn Episode No OBEpisode recorded.
[2024-08-26 13:37] LABS: Rheumatoid Factor < 13.0 IU/mL (<15.0)
[2024-08-26 13:47] LABS: C Reactive Protein 0.39 mg/dL (< or = 0.50)
[2024-08-26 14:12] LABS: Erythrocyte Sedimentation Rate 6 MM/HR (0-20)
[2024-08-27 06:33] LABS: Lyme Abs Screen <0.90 index
[2024-08-30 14:59] LABS: Anti Nuclear Antibody Screen NEGATIVE (NEGATIVE)
[2024-08-30 20:39] LABS: Parvovirus B19 IgG <0.9; Parvovirus B19 IgM <0.9
== END 2024-08-26 07:35 | disposition home or self-care (01) ==
LOC: HO.MANLDS 07:34
PROVIDERS: Visit Provider Internal Medicine
DX: M25.50 Pain in unspecified joint (principal)
CPT/HCPCS: 36415; 85652; 86038; 86140; 86431; 86617; 86618; 86747

== ENCOUNTER 2025-04-04 11:38 | Outpatient (REF) | payer OTHER, SELFPAY ==
--- OUTSIDE RECORDS SUMMARY | 2025-04-04 13:01 | XMS_ITS | Continuity of Care Document ---
Author Organization [facility], [facility] Address [address] [facility] [address] [place] [address] Assessment No assessment recorded. Plan of Treatment Reminders Order Date Submit Date Provider Last Modified By Organization Details Last Modified Time Details Appointments FOLLOW UP 15 2024 10:30A M SELENA WILHELM Not available Not available Not available Lab C-reactiv e protein, quantitat serjio, serum or plasma 2024 025 [facility], [address] [place] [address], [address], 04/04/2025 11:22:31 CMP, serum or plasma 2024 025 [facility], [address] [place] [address], [id number], 04/04/2025 11:22:31 CBC w/ auto diff 2024 025 [facility], [address] [place] [address], [id number], 04/04/2025 11:22:31 ESR (erythroc yte sedimenta tion rate), blood 2024 025 [facility], [address] [place] [address], [address], 04/04/2025 11:22:31 TSH + free T4, serum 2024 025 [facility], [address] [place] [address], [address], 04/04/2025 11:22:31 hemoglobi n A1c, QN, blood 2024 [facility], [address] [place] [address], [address], 04/04/2025 11:22:31 iron + TIBC + ferritin, serum 2024 [facility], [address] [place] [address], [address], 04/04/2025 11:22:31 magnesium , serum or plasma 2024 [facility], [address] [place] [address], [address], 04/04/2025 11:32:23 vitamin B12 + folate, serum or blood 2024 [facility], [address] [place] [address], [address], 04/04/2025 11:32:23 gamma-glu tamyl transfera se (ggt), serum 2024 [facility], [address] [place] [address], [address], 04/04/2025 11:22:31 amylase + lipase, serum 2024 [facility], [address] [place] [address], [address], 04/04/2025 11:22:31 Referral None recorded. Procedures None recorded. Surgeries None recorded. Imaging CT, chest, w/o contrast 2024 [email or web address] [facility] Central Scheduling, [address] [place] [address], [address], 04/04/2025 12:15:35 US, echocardi ogram [address] Central Scheduling, [address] [place], [address], 04/04/2025 12:15:35 holter monitor [address] Central Scheduling, [address] [place], [address], 04/04/2025 12:15:35 US, duplex, carotid artery [address] Central Scheduling, [address] [place], [address], 04/04/2025 12:15:35 PFT, complete [address] Central Scheduling, [address] [place], [address], 04/04/2025 12:15:35 CT, abdomen + pelvis, w/o contrast [address] Central Scheduling, [address] [place], [address], 04/04/2025 12:15:35 Medication Orders propranol ol ER 60 mg capsule,2 4 hr,extend ed release 2024 [facility]armacy #[id number], [address] [place], [address], 04/04/2025 11:17:11 Patient TargetsNo targets recorded. Patient InstructionsNo instructions recorded. Reason for Referral None Reported. Problems Name Problem SNOMED Code Status Onset Date Resolution Date Notes Provider Name and Address Organization Details Recorded Time Mild depressio n 941736002 Active 2018 Not Available [facility] 14:43:20 Insomnia 120161165 Active 2018 Not Available [facility] 10/24/202 1 14:43:20 Vertigo 094565903 Active 2018 Not Available [facility] 14:43:20 Pain of hip region 98382343 Active 2018 Not Available [facility] 14:43:20 Low back pain 626224619 Active 2018 Not Available [facility] 14:43:20 Immunoglo bulin A1 deficienc y 908419368 Active 2018 Not Available [facility] 14:43:20 Hypersomn ia with sleep apnea 46101911 Active 2020 Not Available [facility] 14:43:20 Acute maxillary sinusitis 76430336 Active 2021 SELENA WILHELM [address] [place] [address], [address], [facility] 2 11:05:44 COVID-19 282341868 Active 2021 Alexis Tristan DO [address] [place] [address], [address], [facility] 2 11:55:14 Pain of left shoulder joint 511660472403 83598 Active 2022 SELENA WILHELM [address] [place] [address], [address], [facility] 3 11:22:02 Influenza caused by Influenza A virus 186706071 Active 2023 SELENA WILHELM [address] [place] [address], [address], [facility] 4 11:09:31 Depressiv e disorder 96890317 Active 2023 SELENA WILHELM [address] [place] [address], [address], [facility] 4 14:57:32 Dyspnea on exertion 24266330 Active 2023 SELENA WILHELM [address] [place] [address], [address], [facility] 4 14:57:48 Tachycard ia 6916239 Active 2023 SELENA WILHELM [address] [place], [address], [facility] 4 15:00:22 Immunodef iciency disorder 829928745 Active 2023 SELENA WILHELM [address] [place], [address], [facility] 4 15:02:26 Right lateral elbow tendinopa thy 265289770284 107 Active 2023 Alexis Tristan DO [address] [place] [address], [address], [facility] 4 09:58:08 Neck pain 40588773 Active 2024 SELENA WILHELM [address] [place], [address], [facility] 5 15:31:41 Pain of right shoulder joint 523100744836 76773 Active 2024 SELENA WILHELM [address] [place], [address], [facility] 5 15:31:51 Pain in left foot 130151826180 107 Active 2024 SELENA WILHELM [address] [place], [address], [facility] 5 15:34:06 Clavicle pain 904577203 Active 2024 SELENA WILHELM [address] [place], [address], [facility] 5 15:34:16 Muscle pain 54153240 Active 2024 SELENA WILHELM [address] [place], [address], [facility] 5 15:37:31 Pain of multiple joints 87549066 Active 2024 Alexis Tristan DO [address] [place] [address], [address], [facility] 5 16:48:23 Atypical chest pain 109708327 Active 2024 Alexis Tristan DO [address] [place] [address], [address], [facility] 5 16:09:24 Dyspnea 986034161 Active 2024 SELENA WILHELM [address] [place] [address], [address], [facility] 11:08:28 Essential hypertens ion 60747165 Active 2024 SELENA WILHELM [address] [place] [address], [address], [facility] 5 11:10:45 Gastroeso phageal reflux disease without esophagit is 084256288 Active 2024 SELENA WILHELM [address] [place] [address], [address], [facility] 11:14:19 Right upper quadrant pain 474713050 Active 2024 SELENA WILHELM [address] [place] [address], [address], [facility] 5 11:15:16 Near syncope 494385685 Active 2024 SELENA WILHELM [address] [place] [address], [address], [facility] 11:24:25 Problem Notes None recorded. Procedures Surgical History Date Name Laterality Status Provider Name and Address Organization Details Recorded Time 024 Corticosteroid Injection completed Alexis Tristan DO [address] [place] [address], [address], [facility] 02/16/2024 15:40:16 017 Date of Last Pap Smear completed Emely Kathleen [facility] 12/27/2018 10:37:47 Imaging Results None recorded. Procedure Notes None recorded. Medical Equipment None Reported. Allergies Allergen ID Allergen Name Allergen Category Reaction Reaction Severity Criticality Documentation Date Start Date Code Code System Note Provider Name and Address Organization Details Recorded Time 63970 alprazola m medicatio n Not available Not available Not available 03/17/20252022 596 RxNorm Not Available judi - External Data Service - prod 5 06:29:05 37348 sulfameth oxazole / trimethop rim medicatio n dizziness Not available Not available 03/17/20252019 26457 RxNorm unrec ogniz ed react ion (text : Flush ing, code: 19554 0007) (from exter [facility]) Not Available Multichannel External Data Service - prod 5 06:29:05 3501 bupropion Not available Not available Not available Not available 12/27/2018 43537 RxNorm easy bruis ing Janice garcia [facility] 2 10:30:52 3594 Bactrim medicatio n Not available Not available Not available 02/28/2019 54213 9 RxNorm Maxwell bp Marj garcia [facility] 9 16:12:47 Medications Name Sig Start [...] completed Not Available Not Available Not Available propranolol ER 60 mg capsule,24 hr,extended release Take 1 capsule every day by oral route for 30 days. 2024 active Not Available Not Available Not Avai lable meclizine 12.5 mg tablet TAKE 1 TABLET BY MOUTH THREE TIMES DAILY FOR 14 DAYS 02/03 completed Not Available Not Available Not Available amlodipine 5 mg tablet TAKE 1 TABLET BY MOUTH EVERY DAY FOR 30 DAYS active Not Available Not Available No t Available baclofen 20 mg tablet TAKE 1 [...] TABLET BY MOUTH TWICE A DAY WITH FOOD active Not Available Not Available No t Available lorazepam 1 mg tablet 12/27 completed Not [...] Available Not Available Not Available Afluria Qd 2019- (36 mos up)(PF)60 mcg (15 mcg x4)/0.5 mL IM syringe ADM 0.5ML IM UTD 04/02 completed Not Available Not Available Not Available Vitals Date Recorded Body height Body mass index (BMI) Body weight Heart rate Oxygen saturation Systolic And Diastolic Provider Name and Address Organization Details Last Updated DateTime 5 171.45 cm 51.1 kg/m2 172816. 07 g 102 /min 97 % 148/80 mm[Hg] Destiny Enrrique [facility] 5 10:42:23 Social History Question Answer Notes LastModified by Organizat ion Details LastModified Time Tobacco Smoking Status Never Smoker Alexis Tristan DO [address] [place] [address], [address], [facility] 12/27/2018 16:02:33 What Was The Date Of Your Most Recent Tobacco Screening? 04/04/2025 [email or web address] Information not available 04/04/2025 Sex: Unknown Functional Status None recorded. Mental [...] quadrivalent, preservative 1 completed Alexis Tristan DO [address] [place] [address], [address], [facility] 02/03/2021 16:05:34 SARS-COV-2 (COVID-19) vaccine, UNSPECIFIED 5 [facility] 04/29/2024 09:07:55 Influenza, [place] 5 [facility] 04/29/2024 09:08:07 Tdap 1 completed Emely Kathleen [facility] 12/27/2018 10:35:05 Influenza, split virus, quadrivalent, preservative 9 completed Janice Haynes [facility] 03/04/2019 09:16:23 Influenza, split virus, quadrivalent, preservative 0 [facility] 01/20/2020 15:48:23 Influenza, split virus, quadrivalent, preservative 0 completed Emely Orantesjoie garcia, [facility] 01/20/2020 15:48:34 COVID-19, mRNA, LNP-S, PF, 100 mcg/0.5mL dose or 50 mcg/0.25mL dose 1 completed SELENA WILHELM [address] [place], [address], [facility] 08/27/2020 14:15:38 Past Encounters Encounter ID Performer Location Encounter Start Date Encounter Closed Date Diagnosis/Indication Diagnosis SNOMED-CT Code Diagnosis ICD10 Code Diagnosis IMO Codes Diagnosis Note [id number] [facility] [address] [facility],[place] [address] 03/29/2025 15:48:45 03/29/2025 16:26:33 Depression screening 707955298 Z13.31 neg Atypical chest pain 1025 96601 R07.89 728966 will need work up and get this evalwill order echo holter monitor [id number] [facility] [address] [facility],[place] [address] 04/04/2025 10:32:15 04/04/2025 12:15:34 Dyspnea 814597009 R06.02 88861 Essential hypertension 23613812 I10 84876 Gastroesop hageal reflux disease without esophagitis 212843731 K21.9 248408 Right uppe r quadrant pain 163153754 R10.11 320337 Atypical chest pain 1025 86417 R07.89 829697 Near syncope 888183231 R 55 308985 Health Concerns Section Related Observation LastModified by Organization Detai ls LastModified Time None Recorded Concern Status LastModified by Organization Details LastModified Time None Recorded Payers Encounter Date Sequence Insurance Name Policy Number Policy Barrios Covered Member ID Barrios Member ID Guarantor Name 04/04/2025 1 [facility] (PPO) [id number] 1 Jed Hollis [id number] Venecia tafoya Notes Date Note Type Note Provider Name a md Address Organization Details Recorded Time 04/04/2025 text/html ROS as noted in the HPI c/o cold sensation in the chest the patient is here todayshe has the an ice cream headache in her chest pain been to the ER twice, nothing found acutely but the symptoms persist without change no correlation feels pressure, pain, icy sensation in her chestno worse with rest or activity cannot exclude cardiac etiology at this timeswitched to STAT added propranolol for the tachycardia, anxiety and BP levels will have her do additional lab work as well SELENA WILHELM [address] [place] [address], [place], [address], [facility] 04/04/2025 11:35:10 OBGyn Episode No OBEpisode recorded.
--- OUTSIDE RECORDS SUMMARY | 2025-04-04 13:01 | XMS_ITS | Encounter Summary ---
Author Organization [facility] Address [address] [place] [address] Phone Care Team Providers Care Director Of Quality Improvement Name Role Phone Bigda, Alexis A DO Primary Care Provider [phone] Bigda, Alexis A DO Unavailable Bigda, Alexis A DO Primary Care Provider [phone] Encounter Details Date Type Department Care Team (Late st Contact Info) Description 08/27/2020 Ancillary Orders Virtual Department [address] [place] [address] Arianna Frazier PA [address] [facility] [place] [address] Left arm pain Social History Tobacco Use Types Packs/Day Years Used Date Smoking Tobacco: Never Smokeless Tobacco: Never Alcohol Use Standard Drinks/Week Comments Yes 5 (1 standard drink = 0.6 oz pur e alcohol) weekly Comments No Sex and Gender Information Value Date Recorded Sex Assigned at Female 05/08/2019 9:16 AM EST Legal Sex Female 9:26 PM EDT Gender Identity Female 05/08/2019 9:16 AM EST Sexual Orientation Straight 05/08/2019 9: 16 AM EST documented as of this encounter Plan of Treatment Not on file documented as of this encounter Results * US Upper Extremity Veins Duplex (Left) (08/27/2020 3:36 PM EDT) Anatomical Region Laterality Modality Hip Left, Thigh Left, Knee L eft, Leg Left, Ankle Left, Foot Left Ultrasound 08/27/2020 3:45 PM EDT Impressions 08/27/2020 3:46 PM EDT No deep venous thrombosis detected in the left upper extremity. Narrative 08/27/2020 3:46 PM EDT Ultrasonic examination of the left upper extremity venous system was performed using grayscale, pulsed wave, color and, where appropriate, compression sonography. No prior. There is preserved flow, compressibility and augmentation throughout the visualized deep venous system with preserved color and pulsed-wave flow in the subclavian vein. Procedure Note Ever Sandhu MD - 08/27/2020 Ultrasonic examination of the left upper extremity venous system wasperformed using grayscale, pulsed wave, color and, where appropriate,compression sonography. No prior. There is preserved flow,compressibility and augmentation throughout the visualized deep venoussystem with preserved color and pulsed-wave flow in the subclavian vein. IMPRESSION: No deep venous thrombosis detected in the left upper extremity. us Arianna WALTERS CV US VASCULAR Final Resul t documented in this encounter Visit Diagnoses Diagnosis Left arm pain Pain in soft tissues of limb Left arm pain Pain in soft tissues of limb documented in this encounter Additional Health Concerns Infection Onset Date Last Indicated Resolved Time CoV-Risk 02/15/2024 02/24/2024 03/06/2024 1:21 AM EST documented as of this encounter Care Teams Director Of Quality Improvement Relationship Specialty Start Date End Date Alexis Tristan DO PCP - General Internal Medicine 05/08/19 08/19/24 Alexis Tristan DO [address] [place] [address] [email or web address] PCP - General Internal Medicine 08/20/24 Alexis Tristan DO [address] [place] [address] [email or web address] Insurance Assigned Provider 07/19/22 02/21/23 documented as of this encounter Additional Source Comments The information contained in this document represents components of the legal health record. It is not the complete legal health record.[facility]
--- OUTSIDE RECORDS SUMMARY | 2025-04-04 13:01 | XMS_ITS | Data Portability ---
Author Organization [facility], Telehealth Patient Home Address [address] [facility] [place] [address] Assessment Encounter Date Assessment Date Assessment LastModified by Organization Details LastModified Time 08/24/2024 08/24/2024 [id number] [place] [id number] (RIGGER THIRD) MDM MODERATE MUST MEET 2 OUT OF [...] THAT IS COVERED Not available 08/24/2024 16:51:48 03/29/2025 03/29/2025 The patient presented to their appointment today for multiple concerns requiring moderate to high-level decision making and took over 40-45 minutes for an adequate and appropriate history, exam, assessment and treatment plan. This appointment was [place] with [place]. [id number] [place] [id number] (RIGGER THIRD) MDM HIGH MUST MEET 2 OUT OF 3 ELEMENTS: PROBLEMS, DATA OR RISK ELEMENT 1: PROBLEMS 1 OR MORE CHRONIC ILLNESS W/SEVERE EXACERBATION, PROGRESSION MAY REQUIRE HOSPITAL LEVEL CARE OR 1 ACUTE OR CHRONIC ILLNESS OR INJURY THAT POSES A THREAT TO LIFE OR BODILY FUNCTION ELEMENT 2: DATA: MUST MEET 2 OF 3 CATEGORIES CATEGORY 1 REVIEW OF PRIOR EXTERNAL NOTES REVIEW OF THE RESULTS ORDERING OF EACH TEST ASSESSMENT REQUIRING INDEPENDENT HISTORIAN(S) CATEGORY 2: INDEPENDENT INTERPRETATION OF TESTS BY ANOTHER PROVIDER/SPECIALI ST CATEGORY 3: DISCUSSION OF MGT OR TEST INTERPRETATION W/EXTERNAL PHYSICIAN/SPECIAL IST ELEMENT 3: RISK HIGH RISK OF MORBIDITY FROM ADDITIONAL DIAGNOSTIC TESTING OR TREATMENT PROVIDER MUST THOROUGHLY DOCUMENT EACH ELEMENT THAT IS COVERED Not available 03/29/2025 16:22:14 Plan of Treatment Reminders Order Date Submit Date Provider Last Modified By Organization Details Last Modified Time Details Appointments FOLLOW UP 15 2024 10:30A SELENA POOLE Not available Not available Not available Lab C-reactiv e protein, quantitat serjio, serum or plasma 2024 025 [facility], [address] [place] [address], [id number], 04/04/2025 11:22:31 CMP, serum or plasma 2024 025 [facility], [address] [place] [address], [id number], 04/04/2025 11:22:31 CBC w/ auto diff 2024 025 [facility], [address] [place] [address], [id number], 04/04/2025 11:22:31 ESR (erythroc yte sedimenta tion rate), blood 2024 025 [facility], [address] [place] [address], [id number], 04/04/2025 11:22:31 TSH + free T4, serum 2024 025 [facility], [address] [place] [address], [id number], 04/04/2025 11:22:31 hemoglobi n A1c, QN, blood 2024 025 [facility], [address] [place] [address], [id number], 04/04/2025 11:22:31 iron + TIBC + ferritin, serum 2024 [facility], [address] [place] [address], [id number], 04/04/2025 11:22:31 magnesium , serum or plasma 2024 025 [facility], [address] [place] [address], [address], 04/04/2025 11:32:23 vitamin B12 + folate, serum or blood 2024 [facility], [address] [place] [address], 7[address], 04/04/2025 11:32:23 gamma-glu tamyl transfera se (ggt), serum 2024 025 [facility], [address] [place] [address], 94[address], 04/04/2025 11:22:31 amylase + lipase, serum 2024 025 [facility], [address] [place] [address], [address], 04/04/2025 11:22:31 YADIRA + rf (antinucl ear antibodie s + rheumatoi d factor), quantitat serjio, serum 2024 025 [facility], [address] [place] [address], [id number], 08/31/2024 13:15:19 C-reactiv e protein, quantitat serjio, serum or plasma 2024 025 [facility], [address] [place] [address], 97192, 08/29/2024 11:35:52 ESR (erythroc yte sedimenta tion rate), blood 2024 025 [facility], [address] [place] [address], 86797, 08/24/2024 17:00:21 lyme disease igg+igm, serum, reflex western blot 2024 [facility], [address] [place] [address], [id number], 08/24/2024 17:00:21 parvoviru s B19 igg+igm Ab, serum 2024 [facility], [address] [place] [address], 82136, 08/24/2024 17:00:49 ESR (erythroc yte sedimenta tion rate), blood 2024 025 [facility], [address] [place] [address], [id number], 07/19/2024 15:41:00 C-reactiv e protein, quantitat serjio, serum or plasma 2024 025 [facility], [address] [place] [address], 29067, 07/22/2024 02:02:03 phosphoru s, serum or plasma 2024 025 [facility], [address] [place] [address], 90206, 07/19/2024 15:41:00 CK (creatine kinase), total, serum 2024 025 [facility], [address] [place] [address], [id number], 07/22/2024 02:02:03 CMP, serum or plasma 2024 025 [facility], [address] [place] [address], 68405, 07/22/2024 02:02:03 magnesium , serum or plasma 2024 025 [facility], [address] [place] [address], 70840, 07/22/2024 02:02:03 PTH (parathyr oid hormone), intact + calcium, serum or plasma 2024 025 [facility], [address] [place] [address], 84348, 07/19/2024 15:41:00 uric acid, serum or plasma 2024 025 [facility], [address] [place] [address], 74635, 07/19/2024 15:41:00 Referral None recorded. Procedures None recorded. Surgeries None recorded. Imaging CT, chest, w/o contrast [address] [facility], [address] [place], [address], 04/04/2025 12:15:35 US, echocardi ogram [address] [facility], [address] [place] [address], [address], 04/04/2025 12:15:35 holter monitor [address] [facility], [address] [place] [address], [address], 04/04/2025 12:15:35 US, duplex, carotid artery [address] [facility], [address] [place] [address], [address], 04/04/2025 12:15:35 PFT, complete [address] [facility], [address] [place], [address], 04/04/2025 12:15:35 CT, abdomen + pelvis, w/o contrast [address] [facility], [address] [place], [address], 04/04/2025 12:15:35 US, echocardi ogram 2024 025 [facility], [address] [place], [address], 03/31/2025 14:57:05 holter monitor 2024 025 [facility], [address] [place], [address], 03/29/2025 16:26:34 CT, chest, w/o contrast 2024 025 [facility], [address] [place], [address], 03/31/2025 14:57:22 MRI, knee, w/o contrast 2024 025 [facility] [place], [facility], [address] [address], [place], [address], 09/02/2024 08:46:18 XR, shoulder, 2 or more view 2024 025 [facility], [address] [place], [address], 07/20/2024 11:13:37 XR, cervical spine, 2 or 3 view 2024 025 [facility], [address] [place], [address], 07/21/2024 09:13:22 XR, clavicle 2024 025 [facility], [address] [place], [address], 07/20/2024 05:59:40 XR, foot, 3 or more view 2024 025 [facility], [address] [place], [address], 07/21/2024 11:16:46 Medication Orders propranol ol ER 60 mg capsule,2 4 hr,extend ed release 2024 025 [facility], [address] [place] [address], [address], 04/04/2025 11:17:11 amlodipin e 5 mg tablet 2024 025 [facility], [address] [place], [address], 03/29/2025 16:20:14 diclofena c sodium 75 mg tablet,de layed release 2024 025 [facility], [address] [place] [address], [address], 07/19/2024 15:43:23 baclofen 20 mg tablet 2024 025 [facility], [address] [place] [address], [address], 07/19/2024 15:36:13 zolpidem 10 mg tablet 2024 025 [facility], [address] [place] [address], [address], 07/19/2024 15:43:25 Patient TargetsNo targets recorded. Patient InstructionsNo instructions recorded. Reason for Referral None Reported. Results Created Date Observation Date Name Description Value Unit Range Abnormal Flag Note LastModifiedBy Organization Detail LastModifiedTime 07/20/1907/17/2024 XR, clavi boogie No observ ation record ed. [email or web address] Not Available 2024 08:38:40 07/21/19 25 07/19/2024 XR, shoul ronal, 2 or more view No observ ation record ed. [email or web address] [facility] [address] [facility] [address], [place], [address], 07/20/2024 11:22:24 07/21/19 25 07/19/2024 XR, foot, 3 or more view No observ ation record ed. [email or web address] [facility] [address] [facility], [place], [address], 07/22/2024 11:47:16 07/22/19 25 07/19/2024 XR, cervi laura spine , 2 or 3 view No observ ation record ed. [email or web address] Not Available 2024 11:47:17 Result Notes None recorded. 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, [place], [address], [facility] 2 11:05:44 COVID-19 377239950 Active 2021 Alexis Tristan DO [address] [place] [address], [address], [facility] 2 11:55:14 Pain of left shoulder joint 813777704869 97089 Active 2022 SELENA WILHELM [address] [place] [address], [address], [facility] 3 11:22:02 Influenza caused by Influenza A virus 263907503 Active 2023 SELENA WILHELM [address] [place] [address], [address], [facility] 4 11:09:31 Depressiv e disorder 76597783 Active 2023 SELENA WILHELM [address] [place] [address], , [facility] 4 14:57:32 Dyspnea on exertion 75651216 Active 2023 SELENA WILHELM [address] [place] [address], , [facility] 4 14:57:48 Tachycard ia 2973849 Active 2023 SELENA WILHELM [address] [place] [address], , [facility] 4 15:00:22 Immunodef iciency disorder 503482007 Active 2023 SELENA WILHELM [address] [place] [address], , [facility] 4 15:02:26 Right lateral elbow tendinopa thy 210713925502 107 Active 2023 Alexis Tristan DO [address] [place] [address], [address], [facility] 4 09:58:08 Neck pain 97447034 Active 2024 SELENA WILHELM [address] [place], [address], [facility] 5 15:31:41 Pain of right shoulder joint 479887885081 48222 Active 2024 SELENA WILHELM [address] [place], [address], [facility] 5 15:31:51 Pain in left foot 647418814886 107 Active 2024 SELENA WILHELM [address] [place], [address], [facility] 5 15:34:06 Clavicle pain 835336576 Active 2024 SELENA WILHELM [address] [place] [address], [address], [facility] 5 15:34:16 Muscle pain 26780652 Active 2024 SELENA WILHELM [address] [place] [address], [address], [facility] 5 15:37:31 Pain of multiple joints 38506722 Active 2024 Alexis Tristan DO [address] [place] [address], [address], [facility] 5 16:48:23 Atypical chest pain 852047427 Active 2024 Alexis Tristan DO [address] [place] [address], [address], [facility] 5 16:09:24 Dyspnea 097222818 Active 2024 SELENA WILHELM [address] [place] [address], [address], [facility] 5 11:08:28 Essential hypertens ion 11743041 Active 2024 SELENA WILHELM [address] [place] [address], [address], [facility] 11:10:45 Gastroeso phageal reflux disease without esophagit is 547911164 Active 2024 SELENA WILHELM [address] [place] [address], [address], [facility] 11:14:19 Right upper quadrant pain 974500495 Active 2024 SELENA WILHELM [address] [place] [address], [address], [facility] 11:15:16 Near syncope 597580689 Active 2024 SELENA WILHELM [address] [place] [address], [address], [facility] 11:24:25 Problem Notes None recorded. Procedures Surgical History Date Name Laterality Status Provider Name and Address Organization Details Recorded Time 024 Corticosteroid Injection completed Alexis Tristan DO [address] [place] [address], [address], [facility] 02/16/2024 15:40:16 017 Date of Last Pap Smear completed Emely Kathleen [facility] 12/27/2018 10:37:47 Imaging Results None recorded. Procedure Notes None recorded. Medical Equipment None Reported. Allergies Allergen ID Allergen Name Allergen Category Reaction Reaction Severity Criticality Documentation Date Start Date Code Code System Note Provider Name and Address Organization Details Recorded Time 02878 alprazola m medicatio n Not available Not available Not available 03/17/20252022 596 RxNorm Not Available judi - External Data Service - prod 06:29:05 00691 sulfameth oxazole / trimethop rim medicatio n dizziness Not available Not available 03/17/20252019 53218 RxNorm unrec ogniz ed react ion (text : Flush ing, code: 00532 0007) (from [facility] e) Not Available judi - External Data Service - prod 06:29:05 3501 bupropion Not available Not available Not available Not available 12/27/2018 99598 RxNorm easy bruis ing Janice garcia, [facility] 2 10:30:52 3594 Bactrim medicatio n Not available Not available Not available 02/28/2019 48657 9 RxNorm Maxwell bp Marj Jones jose, [facility] 9 16:12:47 Medications Name Sig [...] Not Available Vitals Date Recorded Body height Heart rate Oxygen saturation Systolic And Diastolic Provider Name and Address Organization Details Last Updated DateTime 07/19/2024 171.45 cm 100 /min 98 % 130/78 mm[Hg] eRma Francis [facility] 07/19/2024 15:02:09 Date Recorded Body height Body mass index (BMI) Body weight Heart rate Oxygen saturation Systolic And Diastolic Provider Name and Address Organization Details Last Updated DateTime 5 171.45 cm 51.2 kg/m2 693279. 67 g 94 /min 98 % 140/80 mm[Hg] Destiny Osuna [facility] 5 16:25:14 Date Recorded Body height Body mass index (BMI) Body weight Heart rate Oxygen saturation Systolic And Diastolic Provider Name and Address Organization Details Last Updated DateTime 5 171.45 cm 51.7 kg/m2 086334. 44 g 112 /min 99 % 168/98 mm[Hg] Brittanie Baron [facility] 5 15:52:53 Date Recorded Body height Body mass index (BMI) Body weight Heart rate Oxygen saturation Systolic And Diastolic Provider Name and Address Organization Details Last Updated DateTime 5 171.45 cm 51.1 kg/m2 330423. 07 g 102 /min 97 % 148/80 mm[Hg] Destiny Osuna [facility] 5 10:42:23 Social History Question Answer Notes LastModified by Organizat ion Details LastModified Time Tobacco Smoking Status Never Smoker Alexis Tristan DO [address] [place] [address], [address], [facility] 12/27/2018 16:02:33 What Was The Date Of Your Most Recent Tobacco Screening? 04/04/2025 [email or web address] Information not available 04/04/2025 Sex: Unknown Functional [...] quadrivalent, preservative 1 completed Alexis Tristan DO [address] [place] [address], [address], [facility] 02/03/2021 16:05:34 SARS-COV-2 (COVID-19) vaccine, UNSPECIFIED 5 completed [facility] 04/29/2024 09:07:55 Influenza, [place] 5 completed [facility] 04/29/2024 09:08:07 Tdap 1 completed [facility] 12/27/2018 10:35:05 Influenza, split virus, quadrivalent, preservative 9 completed [facility] 03/04/2019 09:16:23 Influenza, split virus, quadrivalent, preservative 0 completed Emely garcia [facility] 01/20/2020 15:48:23 Influenza, split virus, quadrivalent, preservative 0 completed Emely garcia [facility] 01/20/2020 15:48:34 COVID-19, mRNA, LNP-S, PF, 100 mcg/0.5mL dose or 50 mcg/0.25mL dose 1 completed SELENA WILHELM [address] [place], [address], [facility] 08/27/2020 14:15:38 Past Encounters Encounter ID Performer Location Encounter Start Date Encounter Closed Date Diagnosis/Indication Diagnosis SNOMED-CT Code Diagnosis ICD10 Code Diagnosis IMO Codes Diagnosis Note [id number] Alexis Tristan [facility] [address],[place] [address] 12/27/2018 15:56:55 12/27/2018 16:43:51 Heel pain 1577791 M79.672 will try the heel cup and start ibuporif and tylenol Anxiety disorder 2069802 06 F41.9 long discussion re poss need for supplement s Adult heal th examination 010324558 Z00.00 [id number] Alexis Tristan [facility] [address],[place] [address] 01/28/2019 16:08:56 01/28/2019 17:04:44 Mild depression 505752366 F32.0 doing better and will cont [facility] is doing Reike and is feeling better Insomnia 014419213 G47.0 0 cont otc med Abnormal p upillary function 31911015 H57.00 will refer to optho [id number] Alexis Tristan [facility] [address] [place] [address],[place] [address] 02/28/2019 15:51:56 02/28/2019 16:27:36 Folliculitis 04780748 L73.9 Serous otitis media 8032 7007 H65.91 Acute uppe r respiratory infection 55630249 J06.9 maybe at onset of uri - sx treatment recommende d [id number] Alexis Tristan [facility] [address] [facility] [address] 03/04/2019 09:14:12 03/04/2019 10:10:25 Pain of hip region 34845930 M25.559 related to foot pain Pain in left foot 419235 6833 60619 M79.672 noted to flare at times will cont PT and do her home exercises Immunoglob ulin [place] deficiency 29786936 D80.2 was told had when a child we will recheck quantitat level [id number] Alexis Tristan [facility] [address] [facility] [address] 05/13/2019 15:16:45 05/13/2019 16:21:05 Low back pain 748068951 M54.5 Related to foot pain Pain of hip region 61637 002 M25.559 related to foot pain Plantar fa sciitis of left foot 2841969178 8863696 M72.2 Has been getting worse, burning on Lat side of foot Will refer ortho and XR Insomnia 923511244 G47.0 0 Sleep has been poor with [place] wart Will try OTC supplement (melatonin , valerian, etc) Mild depression 40442547 3 F32.0 Doing okay but still worry at night Will add citalopram [id number] Alexis Tristan [facility] [address] [facility] [address] 06/13/2019 16:33:02 06/14/2019 08:12:39 Mild depression 139962835 F32.0 Doing okay but still worry at night Will cont the citalopram at current dose 1/2 tab of 10mg Pain of hip region 99101 002 M25.559 it seems to be better now that foot is sl better Low back pain 622366982 M54.5 Related to foot pain and her hip seems to be better after a massage [id number] Alexis Tristan [facility] [address] [facility] [address] 08/24/2019 16:14:11 08/24/2019 16:47:10 Mild depression 662966355 F32.0 Doing okay but still worry at night citalopram at current dose 1/2 tab of 10mg so we will increase to full 10mg Insomnia 182489678 G47.0 0 Sleep has been poor with [place] pires Will try OTC supplement (melatonin , valerian, etc) Low back pain 060195969 M54.5 Related to foot pain and her hip seems to be better after a massage [id number] Alexis Tristan [facility] [address] [facility] [place] [address] 10/04/2019 16:24:45 10/04/2019 16:56:17 Mild depression 241202924 F32.0 Doing okay but still worry at night citalopram increase to 10mg and will continue Insomnia 142238526 G47.0 0 Sleep has been poor with [place] pires Will try OTC supplement (melatonin , valerian, etc) [id number] Alexis Tristan [facility] [address] [facility] [address] 11/04/2019 10:15:02 11/04/2019 11:30:40 Mild depression 925408377 F32.0 Doing very well w/ citalopram Leave at 10 mg and f/u in 1 mo Tension-type headache 39 9475816 G44.209 Encouraged OTC NSAID or tylenol PRN Encouraged reducing stress and hydrating Pain in left arm 9650985 00 M79.602 Local swelling/p ain in L triceps muscle area following trauma Will treat conservati vely with NSAID and rest [id number] Alexis Tristan [facility] [address] [facility] [address] 12/09/2019 15:51:06 12/09/2019 16:40:28 Mild depression 027486902 F32.0 Doing very well w/ citalopram Leave at 10 mg and f/u in 2 months Insomnia 943329372 G47.0 0 Sleep still has been poor at times Will try OTC supplement (melatonin , valerian, etc) [id number] Alexis Tristan [facility] [address] [facility],[place] [address] 02/07/2020 16:13:57 02/07/2020 16:39:08 Mild depression 607862722 F32.0 doing ok and is going to keep it at the 10 mg of citalopram not using the lorazepam yet Insomnia 884070061 G47.0 0 Sleep still has been poor at times has not tried lorazepam Will try OTC supplement (melatonin ,/ valerian, etc) Pain of hip region 99035 002 M25.559 it seems to be better now that foot is sl better Low back pain 373965472 M54.5 Related to foot pain and her hip seems to be better after a massage yoga will help with her back [id number] Alexis Tristan [facility] [address] [place] [address], [place] [address] 04/02/2020 16:14:26 04/03/2020 09:08:22 Mild depression 619961137 F32.0 doing ok and is going to keep it at the 10 mg of citalopram she feels this is fine not using the lorazepam yet Insomnia 333796026 G47.0 0 Sleep still has been fair at times has not tried lorazepam cont to try OTC supplement (melatonin ,/ valerian, etc) [id number] Alexis Tristan [facility] [address], [place] [address] 06/13/2020 16:06:32 06/13/2020 16:54:14 Mild depression 564439277 F32.0 doing ok and is going to keep it at the 10 mg of citalopram she feels this is fine not using the lorazepam yet Snoring 18890633 R06.83 will neeed to be tested [id number] Alexis Tristan [facility] [address] [place] [address], [place] [address] 08/27/2020 14:03:51 08/28/2020 09:50:45 Pain in left arm [id number] M79.602 r/o clot given she had the vaccine in the same arm 10 days ago [id number] Alexis Tristan [facility] [address] [place] [address], [place] [address] 01/11/2021 10:18:19 01/11/2021 15:12:12 Vertigo 198012499 R42 fu with trial meclizine and Audelia manuever Pain in left thumb 41379 25231 131319 M79.645 fu XR r/o fracture, dislocatio n [id number] Alexis Tristan [facility] Internal [facility] [address] [facility], [place] [address] 06/18/2021 10:26:23 06/18/2021 11:11:24 Active or passive immunization 179821197 Z23 utd Adult heal th examination 517907637 Z00.00 doing well and is feeling much better Immunoglob ulin A deficiency 28411891 D80.2 was told had when a child we will recheck quantitat level Mild depression 96076856 3 F32.0 doing ok and is going to keep it at the 10 mg of citalopram she feels this is fine not using the lorazepam yet Dysplastic nevus of skin 894308601 D22.9 has several new lesions [id number] Alexis Tristan [facility] [address] [facility], [place] [address] 08/06/2021 09:25:14 08/06/2021 11:18:07 Acute maxillary sinusitis 40009459 J01.01 will start on augmentin and fu if no improvemen twill also let me know if her PCR test is positive and will adjust treatment plan [id number] Alexis Tristan [facility] [address] [facility], ite [facility] [place] [address] 02/03/2023 09:48:35 02/03/2023 11:30:41 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 Mild depression 69033717 3 F32.0 doing ok and is going to keep it at the 10 mg of citalopram she feels this is fine not using the lorazepam yet Adult heal th examination 723305523 Z00.00 note she has not gone on to get cpap as prev ordered we need to do this as she has dswill order cpap device Obstructiv e sleep apnea syndrome 71560798 G47.33 [id number] Alexis Tristan [facility] Internal Medicine [address] [facility],[place] [address] 08/14/2023 14:43:57 08/17/2023 08:11:48 Depression screening 152231746 Z13.31 stable Depressive disorder 3548 9007 F32.0 stable Immunodefi ciency disorder 059444524 D80.2 stable Dyspnea on exertion 6084 5006 R06.09 will set up with testing Tachycardia 7072846 R00. 0 will also run a TSH + T4 [id number] Alexis Tristan [facility] [address] [facility],[place] [address] 02/09/2024 09:27:15 02/09/2024 10:32:02 Active or passive immunization 871102281 Z23 utd Adult heal th examination 220188402 Z00.01 note she has not gone on to get cpap as prev ordered we need to do this as she has dswill order cpap device Pain of le ft shoulder joint 1466735622 3542353 M25.512 will order russell inj Right late ral elbow tendinopathy 8968329428 30342 M77.11 Insomnia 428325762 G47.0 0 Sleep still has been fair at times has not tried lorazepam cont to try OTC supplement (melatonin ,/ valerian, etc) [id number] Alexis Tristan [facility] [address] [facility],[place] [address] 02/16/2024 15:03:48 02/16/2024 15:49:49 Dyspnea on exertion 86503964 R06.09 Depression screening 171 514285 Z13.31 Pain of le ft shoulder joint 9910128596 1825749 M25.512 russell inj sheila [id number] Alexis Tristan [facility] [address] [facility],[place] [address] 07/19/2024 14:32:05 07/19/2024 15:55:07 Neck pain 16977386 M54.2 Pain of le ft shoulder joint 1327423585 2308128 M25.512 Pain in left foot 248193 2963 66693 M79.672 Clavicle pain 641502578 M25.512 Muscle pain 01736569 M79 .10 Insomnia 242734931 G47.0 9 [id number] Alexis Danny Tristan [facility] [address] [facility],[place] [address] 08/24/2024 16:16:16 08/26/2024 09:28:29 Depression screening 233374985 Z13.31 neg Instabilit y of joint of right knee 3775895001 493943 M23.51 0901265 Pain of mu ltiple joints 99011789 M25.50 209007 275952 Alexis Danny Tristan [facility] [address] [facility],[place] [address] 03/29/2025 15:48:45 03/29/2025 16:26:33 Depression screening 184972607 Z13.31 neg Atypical chest pain 1025 12565 R07.89 472497 will need work [facility] and [facility] [id number] Alexis Danny Tristan [facility] [address] [facility],[place] [address] 04/04/2025 10:32:15 04/04/2025 12:15:34 Dyspnea 397473552 R06.02 60261 Essential hypertension 67393512 I10 84666 Gastroesop hageal reflux disease without esophagitis 236245148 K21.9 771179 Right uppe r quadrant pain 014769184 R10.11 116076 Atypical chest pain 1025 52615 R07.89 395283 Near syncope 880028885 R 55 944111 Health Concerns Section Related Observation LastModified by Organization Detai ls LastModified Time None Recorded Concern Status LastModified by Organization Details LastModified Time None Recorded Advance Directives Directive None Recorded Payers Insurance Date Sequence Insurance Name Policy Number Policy Barrios Covered Member ID Barrios Member ID Guarantor Name 08/21/2023 1 [facility] [id number] Venecia Ramirez [id number] Venecia Ramirez-Col eman 04/01/2025 1 [facility] ([facility]) [id number] Jed Hollis [id number] Venecia Kapinos-Col eman 08/21/2023 1 [facility] [id number] Venecia Ramirez [id number] Venecia Hillinos-Col eman 08/21/2023 1 [facility] ([facility] Venecia Ramirez [id number] Venecia Kapinos-Col eman Notes Date Note Type Note Provider Name a nd Address Organization Details Recorded Time 02/16/2024 text/html ROS as noted in the HPI here for left shoulder OA and tendinitis Alexis Tristan DO [address] [place] [address], [phone], [facility] 02/16/2024 15:44:33 07/19/2024 text/html c/o L shoulder pain patient having severe left shoulder pain and clavicle painstarted a few days agocoming from her neck as well, but limited ROM in cervical spine and left shoulder due to painpain with internal rotation and flexion, pain with turning the head to the left had a cortisone shot at some point in her shoulder, ?reactionrecommend ed XR and lab work to determine cause she also has a new bone spur on the left foot, but it popped up in a day or twodidn't have it before then, pt is adamant she didn't have it before now will fu with patient after imaging and lab work returns SELENA WILHELM [address] [place] [address], [phone], [facility] 07/20/2024 13:30:32 08/24/2024 text/html ROS as noted in the HPI Alexis Tristan DO [address] [place] [address], [phone], [facility] 08/24/2024 16:51:56 03/29/2025 text/html ROS as noted in the HPI here for rechk and is having a strange atypical chest pain Alexis Tristan DO [address] [place] [address], [phone], [facility] 03/29/2025 16:22:45 04/04/2025 text/html ROS as noted in the [...] additional lab work as well SELENA WILHELM [address] [place] [address], [place], [address], [place] [facility] 04/04/2025 11:35:10 OBGyn Episode No OBEpisode recorded.
--- OUTSIDE RECORDS SUMMARY | 2025-04-04 13:01 | XMS_ITS | Patient Health Record ---
Author Organization [facility] [place] Address [address] [facility] [place] [address] Care Team Providers Care Commercial Solar Sales Consultant Name Role Phone Kun BELL, Alexis Primary Care Provider Sejal Bernstein Unavailable [phone] Allergies Allergen (clinical drug ingredient) Drug/Non Drug Allergy documented on EMR Reaction Allergy Type Onset Date Status sulfamethoxazole / trimethoprim Bactrim (uncoded) HBP, flush Allergy Active bupropion Bupropion (uncoded) Unknown Allergy Active Reason For Referral No Information Medications Medication SIG (Take, Route, Frequency, Duration) Notes Start Date End Date Status Citalopram & Diet Manage Prod Not-Taking Multivitamin Adult - as directed Orally Not-Taking Immunizations Vaccine Route Administration Date Status Comme nts Influenza Unknown 12/13/2023 Administered Social History Tobacco Use: Social History Observation Description Date Details (start date - stop date) Never Smoker NA - NA Tobacco Use/Smoking Question Answer Notes Are you a: nonsmoker Additional Findings: Tobacco Non-User Current no n-smoker Tobacco use other than smoking: Question Answer Notes Are you an other tobacco user? No AUDIT-C (Standard) Question Answer Notes Did you have a drink contain ing alcohol in the past year? Yes How often did you have a dri nk containing alcohol in the past year? Monthly or less (1 point) How many drinks did you have on a typical day when you were drinking in the past year? 1 or 2 drinks (0 point) How often did you have six o r more drinks on one occasion in the past year? 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 Vital Signs Blood pressure diastolic 80 mm Hg 11/08/2024 Height 5ft7in in 11/08/2024 Blood pressure systolic 123 mm Hg 11/08/2024 Weight 265 lbs 11/08/2024 BMI 41.5 kg/m2 11/08/2024 Encounters Encounter Location Date Provider Diagnosis [facility] [address] 10/04/2024 Sejal Perica Ganglion of foot, left M67.472 ; Soft tissue mass M79.89 ; Pain in left foot M79.672 and Neuritis of left foot G57.[address] [address] 11/08/2024 Sejal Perica Soft tissue mass M79.89 ; Foreign body in left foot, subsequent encounter S90.852D ; Pain in left foot M79.672 and Neuritis of left foot G57.92 [facility] [address] 11/08/2024 Sejal Perica [address] [address] 10/04/2024 Sejal Kate Assessments Encounter Date Diagnosis (ICD Code) Assessment Notes Treatment Notes Treatment Clinical Notes Section Notes 10/04/2024 Ganglion of foot, left (ICD-10 - M67.472) 10/04/2024 Soft tissue mass (ICD-10 - M79.89) 11/08/2024 Foreign body in left foot, subsequent encounter (ICD-10 - S90.852D) 11/08/2024 Soft tissue mass (ICD-10 - M79.89) 10/04/2024 Pain in left foot (ICD-10 - M79.672) 11/08/2024 Pain in left foot (ICD-10 - M79.672) 11/08/2024 Neuritis of left foot (ICD-10 - G57.92) 10/04/2024 Neuritis of left foot (ICD-10 - G57.92) Plan Of Treatment Pending Test Test Name Order Date X ray : Foot, left 3V 08/02/2019 X ray : Foot, left 3V 10/04/2024 [id number] TENDON SHEATH/LIGAMENT 0 09/14/2019 Insurance Providers Payer Name Payer Address Payer Phone Subscriber Number Group Number Insured Name Patient Relationship to Insured Coverage Start Date Coverage End Date [employer] ([facility]) [address] [place] [id number] Jed Hollis Spouse - patient is the spouse of the insured Medical (General) History Medical History History ICD Code Anxiety Depression - mild Headaches/Migraines Warts - in the past Chicken pox Transfusions Lower Back pain Insomnia Vertigo hip pain Surgical History Surgery Date(Month/Year) section - twins 10/07/06 wisdom teeth extraction 2012 Hospitalization History Reason Date(Month/Year) ER- anxiety, foot swelling 09/04
--- OUTSIDE RECORDS SUMMARY | 2025-04-04 13:01 | XMS_ITS | Encounter Summary ---
Author Organization [facility] Address [address] [place] [address] Phone Care Team Providers Care Navy Airspace Officer Name Role Phone Bigsophia, Alexis A DO Primary Care Provider [phone] Bigda, Alexis A DO Unavailable Bigda, Alexis A DO Primary Care Provider [phone] Encounter Details Date Type Department Care Team (Latest Contact Info) Description 01/11/2021 Transcribe Orders Virtual Department [address] [place] [address] Arianna Frazier PA [address] [facility] [place] [address] Pain in left finger(s) (Primary Dx) Social History Tobacco Use Types Packs/Day Years [...] on file documented as of this encounter Visit Diagnoses Diagnosis Pain in left finger(s)- Primary documented in this encounter Additional Health Concerns Infection Onset Date Last Indicated Resolved Time CoV-Risk 02/15/2024 02/24/2024 03/06/2024 1:21 AM EST documented as of this encounter Care Teams [employer] Officer Relationship Specialty Start Date End Date Alexis Tristan DO PCP - General Internal Medicine 05/08/19 08/19/24 Alexis Tristan DO [address] [place] [address] [email or web address] PCP - General Internal Medicine 08/20/24 Alexis Tristan DO [address] [place] [address] Insurance Assigned Provider 07/19/22 02/21/23 documented as of this encounter Additional Source Comments The information contained in this document represents components of the legal health record. It is not the complete legal health record.[facility]
--- OUTSIDE RECORDS SUMMARY | 2025-04-04 13:01 | XMS_ITS | Encounter Summary ---
Author Organization [facility] Address [address] [place] [address] Phone Care Team Providers Care Cashier Host/Hostess Name Role Phone Alexis Tristan DO Primary Care Provider [phone] Alexis Tristan DO Unavailable Alexis Tristan DO Primary Care Provider [phone] Encounter Details Date Type Department Care Team (Late st Contact Info) Description 04/17/2021 Procedure Pass [address] [address] Social History Tobacco Use Types Packs/Day Years [...] documented as of this encounter Visit Diagnoses Not on filedocumented in this encounter Additional Health Concerns Infection Onset Date Last Indicated Resolved Time CoV-Risk 02/15/2024 02/24/2024 03/06/2024 1:21 AM EST documented as of this encounter Care Teams Cashier Host/Hostess Relationship Specialty Start Date End Date Alexis Tristan DO [email or web address] PCP - General Internal Medicine 05/08/19 08/19/24 Alexis Tristan DO [address] [place] [address] PCP - General Internal Medicine 08/20/24 Alexis Tristan DO [address] [place] [address] Insurance Assigned Provider 07/19/22 02/21/23 documented as of this encounter Additional Source Comments The information contained in this document represents components of the legal health record. It is not the complete legal health record.[facility]
--- OUTSIDE RECORDS SUMMARY | 2025-04-04 13:01 | XMS_ITS | Continuity of Care Document ---
Author Organization [place] - [facility], [facility] Address [address] [place] [address] Assessment Encounter Date Assessment Date Assessment LastModified by Organization Details LastModified Time 03/29/2025 03/29/2025 The patient presented to their appointment today for multiple concerns requiring moderate to high-level decision making and took over 40-45 minutes for an adequate and appropriate history, exam, assessment and treatment plan. [place] [id number] [place] [id number] (CHILDREN'S NURSERY ASSISTANT) [facility] HIGH MUST MEET 2 OUT OF 3 [...] ELEMENT THAT IS COVERED [email or web address] Not available 03/29/2025 16:22:14 Plan of Treatment Reminders Order Date Submit Date Provider Last Modified By Organization Details Last Modified Time Details Appointments FOLLOW UP 15 2024 10:30A M SELENA WILHELM Not available Not available Not available Lab None recorded. Referral None recorded. Procedures None recorded. Surgeries None recorded. Imaging US, echocardi ogram 2024 025 [facility], [address] [place], [address], 03/31/2025 14:57:05 holter monitor 2024 025 [facility], [address] [place], [address], 03/29/2025 16:26:34 CT, chest, w/o contrast 2024 025 [facility] Scheduling, [address] [place], [address], 03/31/2025 14:57:22 Medication Orders amlodipin e 5 mg tablet 2024 025 [facility]acy #[id number], [address] [place], [address], 03/29/2025 16:20:14 Patient TargetsNo targets recorded. Patient InstructionsNo instructions recorded. Reason for Referral None Reported. Problems Name Problem SNOMED Code Status Onset Date Resolution Date Notes Provider Name and Address Organization Details Recorded Time Mild depressio n 272314505 Active 2018 Not Available [facility] 14:43:20 Insomnia 339903759 Active 2018 Not Available [facility] 14:43:20 Vertigo 632510682 Active 2018 Not Available [facility] 14:43:20 Pain of hip region 55344164 Active 2018 Not Available [facility] 14:43:20 Low back pain 234104894 Active 2018 Not Available [facility] 14:43:20 Immunoglo bulin A1 deficienc y 399682126 Active 2018 Not Available [facility] 14:43:20 Hypersomn ia with sleep apnea 68599269 Active 2020 Not Available [facility] 14:43:20 Acute maxillary sinusitis 59385930 Active 2021 SELENA WILHELM [address] [place] [address], [address], [facility] 2 11:05:44 COVID-19 731353244 Active 2021 Alexis Tristan DO [address] [place] [address], [address], [facility] 2 11:55:14 Pain of left shoulder joint 346742163380 03340 Active 2022 SELENA WILHELM [address] [place] [address], [address], [facility] 3 11:22:02 Influenza caused by Influenza A virus 912709636 Active 2023 SELENA WILHELM [address] [place] [address], [address], [facility] 4 11:09:31 Depressiv e disorder 98552637 Active 2023 SELENA WILHELM [address] [place] [address], [address], [facility] 4 14:57:32 Dyspnea on exertion 31343713 Active 2023 SELENA WILHELM [address] [place] [address], [address], [facility] 4 14:57:48 Tachycard ia 7757414 Active 2023 SELENA WILHELM [address] [place] [address], [address], [facility] 4 15:00:22 Immunodef iciency disorder 158809894 Active 2023 SELENA WILHELM [address] [place] [address], [address], [facility] 4 15:02:26 Right lateral elbow tendinopa thy 766561917838 107 Active 2023 Alexis Tristan DO [address] [place] [address], [address], [facility] 4 09:58:08 Neck pain 72392647 Active 2024 SELENA WILHELM [address] [place], [address], [facility] 5 15:31:41 Pain of right shoulder joint 102703510496 79840 Active 2024 SELENA WILHELM [address] [place], [address], [facility] 5 15:31:51 Pain in left foot 897400184835 107 Active 2024 SELENA WILHELM [address] [place] [address], [address], [facility] 5 15:34:06 Clavicle pain 371997463 Active 2024 SELENA WILHELM [address] [place] [address], [address], [facility] 5 15:34:16 Muscle pain 47323817 Active 2024 SELENA WILHELM [address] [place] [address], [address], [facility] 5 15:37:31 Pain of multiple joints 36990795 Active 2024 Alexis Tristan DO [address] [place] [address], [address], [facility] 5 16:48:23 Atypical chest pain 562210233 Active 2024 Alexis Tristan, [address] [place] [address], [address], [facility] 5 16:09:24 Dyspnea 413790334 Active 2024 SELENA WILHELM [address] [place] [address], [address], [facility] 5 11:08:28 Essential hypertens ion 05146391 Active 2024 SELENA WILHELM [address] [place] [address], [address], [facility] 11:10:45 Gastroeso phageal reflux disease without esophagit is 574414583 Active 2024 SELENA WILHELM [address] [place], [address], [facility] 11:14:19 Right upper quadrant pain 008861370 Active 2024 SELENA WILHELM [address] [place] [address], [address], [facility] 11:15:16 Near syncope 893433943 Active 2024 SELENA WILHELM [address] [place] [address], [address], [facility] 11:24:25 Problem Notes None recorded. Procedures Surgical History Date Name Laterality Status Provider Name and Address Organization Details Recorded Time 024 Corticosteroid Injection completed Alexis Tristan, [address] [place] [address], [address], [facility] 02/16/2024 15:40:16 017 Date of Last Pap Smear completed Emely Kathleen [facility] 12/27/2018 10:37:47 Imaging Results None recorded. Procedure Notes None recorded. Medical Equipment None Reported. Allergies Allergen ID Allergen Name Allergen Category Reaction Reaction Severity Criticality Documentation Date Start Date Code Code System Note Provider Name and Address Organization Details Recorded Time 17949 alprazola m medicatio n Not available Not available Not available 03/17/20252022 596 RxNorm Not Available judi - External Data Service - prod 06:29:05 42886 sulfameth oxazole / trimethop rim medicatio n dizziness Not available Not available 03/17/20252019 12630 RxNorm unrec ogniz ed react ion (text : Flush ing, code: [id number]) (from exter [facility] e) Not Available judi - External Data Service - prod 06:29:05 3501 bupropion Not available Not available Not available Not available 12/27/2018 70642 RxNorm easy bruis ing Janice garcia, [facility] 2 10:30:52 3594 Bactrim medicatio n Not available Not available Not available 02/28/2019 96708 9 RxNorm Maxwell bp Marj garcia, [facility] 9 16:12:47 Medications Name Sig [...] Updated DateTime 5 171.45 cm 51.7 kg/m2 854942. 44 g 112 /min 99 % 168/98 mm[Hg] Brittanie Baron [facility] 5 15:52:53 Social History Question Answer Notes LastModified by Organizat ion Details LastModified Time Tobacco Smoking Status Never Smoker Alexis Tristan, DO [address] [facility], [place], [address], [facility] 12/27/2018 16:02:33 What Was The Date Of Your Most Recent Tobacco Screening? 04/04/2025 [email or web address] Information not available 04/04/2025 Sex: Unknown Functional [...] quadrivalent, preservative 1 completed Alexis Tristan DO [address] [place] [address], [address], [facility] 02/03/2021 16:05:34 SARS-COV-2 (COVID-19) vaccine, UNSPECIFIED 5 completed Aime Tristan [facility] 04/29/2024 09:07:55 Influenza, [place] [facility] 09:08:07 Tdap 1 completed Emely Kathleen [facility] 12/27/2018 10:35:05 Influenza, split virus, quadrivalent, preservative 9 completed Janice Haynes [facility] 03/04/2019 09:16:23 Influenza, split virus, quadrivalent, preservative 0 completed Emely Kathleen [facility] 01/20/2020 15:48:23 Influenza, split virus, quadrivalent, preservative 0 completed Emely Kathleen [facility] 01/20/2020 15:48:34 COVID-19, mRNA, LNP-S, PF, 100 mcg/0.5mL dose or 50 mcg/0.25mL dose 1 completed SELENA WILHELM [address] [place] [address], [address], [facility] 08/27/2020 14:15:38 Past Encounters Encounter ID Performer Location Encounter Start Date Encounter Closed Date Diagnosis/Indication Diagnosis SNOMED-CT Code Diagnosis ICD10 Code Diagnosis IMO Codes Diagnosis Note [id number] Alexis Tristan DO [facility] [address] [facility],[place] [address] 03/29/2025 15:48:45 03/29/2025 16:26:33 Depression screening 067803935 Z13.31 neg Atypical chest pain 1025 07361 R07.89 410045 will need work up and get this evalwill order echo holter monitor Health Concerns Section Related Observation LastModified by Organization Detai ls LastModified Time None Recorded Concern Status LastModified by Organization Details LastModified Time None Recorded Payers Encounter Date Sequence Insurance Name Policy Number Policy Barrios Covered Member ID Barrios Member ID Guarantor Name 03/29/2025 1 [facility] (O) [id number] 1 Jed Hollis [id number] Venecia tafoya Notes Date Note Type Note Provider Name a wi Address Organization Details Recorded Time 03/29/2025 text/html ROS as noted in the HPI here for rechk and is having a strange atypical chest pain Alexis Tristan, DO [address] [place] [address], [place], [address], [facility] 03/29/2025 16:22:45 OBGyn Episode No OBEpisode recorded.
--- OUTSIDE RECORDS SUMMARY | 2025-04-04 13:01 | XMS_ITS | Encounter Summary ---
Author Organization [facility] Address [address] [place] [address] Phone Care Team Providers Care Gravel Screener Name Role Phone Alexis Tristan DO Primary Care Provider Alexis Tristan DO Primary Care Provider [phone] Encounter Details Date Type Department Care Team (Late st Contact Info) Description 12/29/2023 Procedure Pass [facility], [facility] [address] [place] [address] Social History Tobacco Use Types Packs/Day Years Used Date Smoking Tobacco: Never Passive Smoke Exposure: Never Smokeless Tobacco: Never Alcohol Use Standard Drinks/Week Comments Yes 0 (1 standard drink = 0.6 oz pur e alcohol) rarely - one every few months Education Answer Date Recorded Are you interested in more education? Not on kade e 08/08/2022 Are you concerned about learning? Not on file 08/08/2022 No 08/08/2022 No 08/08/2022 Digital Access Answer Date Recorded No 09/08/2022 No 09/08/2022 Reliable internet access at home? Not on file 09/08/2022 Device with a working camera? Not on file Intimate Partner Violence Answer Date R ecorded Denied Basic Needs Not on file 10/31/2022 In the past 12 months have y ou been in a relationship with a person who hurts, threatens, or tries to control you? No 10/31/2022 Worried food would run out Not on file 10/31 In the past 12 months have y ou been in a relationship with a person who hurts, threatens, or tries to control you? No 10/31/2022 Comments No Sex and Gender Information Value [...] documented as of this encounter Care Teams Gravel Screener Relationship Specialty Start Date End Date Alexis Tristan DO PCP - General Internal Medicine 05/08/19 08/19/24 Alexis Tristan DO [address] [place] [address] PCP - General Internal Medicine 08/20/24 documented as of this encounter Additional Source Comments The information contained in this document represents components of the legal health record. It is not the complete legal health record.[facility]
--- OUTSIDE RECORDS SUMMARY | 2025-04-04 13:02 | XMS_ITS | Encounter Summary ---
Author Organization [facility] Address [address] [place] [address] Phone Care Team Providers Care Automatic Pinsetter Mechanic Name Role Phone Annesophia, Alexis La Nena DO Primary Care Provider [phone] Bigda, Alexis A DO Unavailable Bigda, Alexis A DO Primary Care Provider [phone] Encounter Details Date Type Department Care Team (Late st Contact Info) Description 11/03/2022 Procedure Pass [facility] Admitting Dept Virtual Department [address] [place] [address] Social History Tobacco Use Types Packs/Day Years Used Date Smoking Tobacco: Never Passive Smoke Exposure: Never Smokeless Tobacco: Never Alcohol Use Standard Drinks/Week Comments Not Currently 0 (1 standard drink = 0.6 oz pure alcohol) rarely - one every few months [...] documented as of this encounter Care Teams Automatic Pinsetter Mechanic Relationship Specialty Start Date End Date Alexis Tristan DO [email or web address] PCP - General Internal Medicine 05/08/19 08/19/24 Alexis Tristan DO [address] [place] [address] [email or web address] PCP - General Internal Medicine 08/20/24 Alexis Tristan DO [address] [place] [address] [email or web address] Insurance Assigned Provider 07/19/22 02/21/23 documented as of this encounter Additional Source Comments The information contained in this document represents components of the legal health record. It is not the complete legal health record.[facility]
--- OUTSIDE RECORDS SUMMARY | 2025-04-04 13:02 | XMS_ITS | Clinical Summary ---
Author Organization [facility] Address [address] [place] [address] Phone Care Team Providers Care Hiv Cts Specialist Name Role Phone Ana Maria Vieyra DO Primary Care Provider [phone] Allergies Active Allergy Reactions Criticality Noted Date Comments Alprazolam 10/15/2022 Bupropion 05/08/2019 Sulfamethoxazole-Trimethoprim Dizziness,Flushing 05/08/2019 Medications levonorgestreL (MIRENA) 21 mcg/24 hours (8 yrs) 52 mg intrauterine device 1 Device by Intrauterine route. Active MULTIVITAMIN ORAL Take by mouth. Activ e Hospital, Clinic, or Other Facility Administered Medication Ordered Dose Route Frequency Start Date End Date Status levonorgestreL (MIRENA) 21 mcg/24 hr (8 yrs) 52 mg intrauterine device 1 eachIndications:Encounter for IUD removal and reinsertion 1 each Utrn Every 8 years 11/17/2023 Active Active Problems Problem Noted Date Diagnosed Date Immunodeficiency disorder 08/14/2023 Cellulitis of breast 04/17/2021 Assessment & Plan (04/17/2021 9:18 AM EST): Exam most c/w infection and not inflammatory breast cancer, which we discussed Rx with antibiotics and warm moist compresses If this does not resolve, then we have to consider the cancer dx and perform bx or refer to breast surgeon Encounter for contraceptive management 2 Overview (04/17/2021): IUD threads not visible, was in situ on u/s Assessment & Plan (04/17/2021 9:21 AM EST): Recommend keeping this x the 6 years, and described that usually we can reach threads in office and remove easily Screening breast examination 04/17/2021 Assessment & Plan (04/17/2021 9:21 AM EST): Recommend waiting a month at least Abnormal pupillary function 09/22/2020 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 Hip pain 12/27/2018 Insomnia 12/27/2018 Low back pain 12/27/2018 Mild depression 12/27/2018 Vertigo 12/27/2018 Encounters Date Type Department Care Team Description 03/16/2025 6:51 AM EST - 03/16/2025 12:30 PM EST Emergency [facility] [address] [place] [address] Marielos Moran MD, PhD Discharge Disposition: Home or Self Care 03/15/2025 7:44 AM EST - 03/15/2025 12:08 PM EST Emergency [facility] [address] [place] [address] Maximus Martin MD Discharge Disposition: Home or Self Care 01/10/2025 4:00 PM EDT Office Visit [facility] [address] [place] [address] Purnima Epstein MD Encounter for gynecological examination without abnormal finding (Primary Dx); Class 3 severe obesity with body mass index (BMI) of 50.0 to 59.9 in adult, unspecified obesity type, unspecified whether serious comorbidity present from Last 3 Months Immunizations Immunization Administration Dates Next Due COVID-19 (Pre-02/02) Moderna Vaccine, mRNA, PF 09/15/2020,08/16/2020 INFLUENZA, SPLIT VIRUS, TRIVALENT PF 01/20/2016, 04/13/2015 INFLUENZA, SPLIT VIRUS, TRIV ALENT W/ PRESERVATIVE IM 05/10/2010 Influenza Quadrivalent Preservative Free IM 01/12,01/19/2020,03/21/2013 Influenza Quadrivalent w/ Preservative IM 2020,01/19/2020,01/28/2019 Influenza trivalent preserva tive free intradermal 04/23/2012 Tdap 10/30/2010,06/11/2010 Family History Medical History Relation Comments Colon cancer Maternal Grandmother Breast cancer Paternal Grandmother Relation Status Comments Father Alive Maternal Grandmother Mother Alive Paternal Grandmother Social History Tobacco Use Types Packs/Day Years Used Date Smoking Tobacco: Never Passive Smoke Exposure: Never Smokeless Tobacco: Never Tobacco Cessation:Counseling Given: Not Answered Alcohol Use Standard Drinks/Week Comments Not Currently 0 (1 standard drink = 0.6 oz pure alcohol) rarely - one every few months Education Answer Date Recorded Are you interested in more education? Not on kade e 08/08/2022 Are you concerned about learning? Not on file 08/08/2022 No 08/08/2022 No 08/08/2022 Food Answer Date Recorded Within the past 6 months we worried whether our food would run out before we got money to buy more. Never True 03/15/2025 Within the past 6 months the food we bought just didn't last and we didn't have enough money to get more. Never True Residential Stability Answer Date Recor ded What is your housing situation today? I have yanely sing 03/15/2025 How many times have you move d in the past 12 months? Zero (I did not move) 03/15/2025 Paying for Meds Answer Date Recorded Do you have trouble paying for medicines? No 03/15/2025 Paying Utility Bills Answer Date Record ed Do you have trouble paying your heating or elect ricity bill? No 03/15/2025 Transportation Answer Date Recorded Has the lack of transportati on kept you from medical appointments or from getting medications? No 03/15/2025 Digital Access Answer Date Recorded No 03/15/2025 Yes 03/15/2025 Do you have reliable internet access at home? Ye s 03/15/2025 Do you have a device (e.g., phone, tablet, computer) with a working camera? Yes 03/15/2025 Intimate Partner Violence Answer Date R ecorded Are you denied basic needs s uch as food, clothing, or medical care? No 03/16/2025 In the past 12 months have y ou been in a relationship with a person who hurts, threatens, or tries to control you? No 03/16/2025 Are you denied basic needs s uch as food, clothing, or medical care? No 03/16/2025 In the past 12 months have y ou been in a relationship with a person who hurts, threatens, or tries to control you? No 03/16/2025 Comments No Sex and Gender Information Value Date Recorded Sex Assigned at Female 05/08/2019 9:16 AM EST Legal Sex Female 9:26 PM EDT Gender Identity Female 05/08/2019 9:16 AM EST Sexual Orientation Straight 05/08/2019 9: 16 AM EST Last Filed Vital Signs Vital Sign Reading Time Taken Comments Blood Pressure 141/105 03/16/2025 11:00 AM EST Pulse 82 03/16/2025 11:00 AM EST Temperature 36.7 C (98.1 F) 03/16/2025 12:28 PM EST Respiratory Rate 12 03/16/2025 10:00 AM EST Oxygen Saturation 100% 03/16/2025 11:00 AM EST Inhaled Oxygen Concentration - - Weight 154.2 kg (340 lb) 03/16/2025 6:50 AM EST Height 170.2 cm (5' 7 ) 03/16/2025 6:50 AM EST Body Mass Index 53.25 03/16/2025 6:50 AM EST Plan of Treatment Health Maintenance Due Date Last Done Comments DEPRESSION SCREENING 1988 PNEUMOCOCCAL VACCINES (0-49 years) (1 of 2 - PCV) 10/20/1995 Adult Td,Tdap Booster 10/30/2020 10/30/2010, 011 COLOGUARD 2021 FIT TEST 2021 FOBT 2021 SIGMOIDOSCOPY 2021 VIRTUAL COLONOSCOPY 2021 LIPID PANEL 12/30/2023 12/29/2018 INFLUENZA VACCINE (#1) 2024 , 04/26/2023, 02/02/2021, Additional history exists COVID-19 VACCINE ( season) 2024 04/27/2024, 04/26/2023, 04/16/2021, Additional history exists MAMMOGRAM 05/27/2026 05/27/2024, 10/02/2021 PAP SMEAR 12/28/2026 12/29/2023, 04/03/2020 SCREENING FOR DIABETES 03/16/2028 03/16/2025 IUD 11/17/2031 11/17/2023 COLONOSCOPY 11/03/2032 11/03/2022 COLORECTAL CANCER SCREENING 11/03/2032 HEPATITIS C SCREENING Completed 04/03/2020, 020 HIV ONE-TIME SCREENING (18-65 YEARS) Completed 04/03/2020 SMOKING STATUS SCREENING (Once After 26 Yrs) Completed 03/16/2025 HEPATITIS A VACCINES Aged Out No long er eligible based on patient's age to complete this topic HIB VACCINES Aged Out No longer eligi ble based on patient's age to complete this topic MENINGOCOCCAL VACCINES (ACWY) Aged Out No longer eligible based on patient's age to complete this topic MENINGOCOCCAL VACCINES (B) Aged Out N o longer eligible based on patient's age to complete this topic Medical Devices Implanted Type Area [id number] Consultant Device Identifier Shelf Expiration Date Model / Serial / Lot Iud Implanted:09/2023 (Quantity not on file) Intrauterine Device Procedures Procedure Name Priority Date/Time Associated Diagnosis Comments D-DIMER STAT 03/16/2025 11:05 AM EST TROPONIN STAT 03/16/2025 9:50 AM EST TROPONIN STAT 03/16/2025 8:25 AM EST XR CHEST PORTABLE Routine 03/16/2025 7:5 4 AM EST CBC AND DIFFERENTIAL STAT 03/16/2025 7:29 AM EST TROPONIN STAT 03/16/2025 7:29 AM EST BASIC METABOLIC PANEL (BMP) STAT 03/16/2025 7:29 AM EST CBC AND DIFFERENTIAL STAT 03/16/2025 7:29 AM EST ECG 12-LEAD STAT 03/16/2025 6:57 AM EST TROPONIN STAT 03/15/2025 10:27 AM EST TROPONIN STAT 03/15/2025 8:52 AM EST XR CHEST PORTABLE Routine 03/15/2025 8:3 2 AM EST LAB ADD-ON STAT 03/15/2025 8:05 AM EST TSH WITH REFLEX STAT 03/15/2025 8:02 AM EST HCG, SERUM QUALITATIVE STAT 03/15/2025 8:02 AM EST CBC AND DIFFERENTIAL STAT 03/15/2025 8:02 AM EST TROPONIN STAT 03/15/2025 8:02 AM EST BASIC METABOLIC PANEL (BMP) STAT 03/15/2025 8:02 AM EST CBC AND DIFFERENTIAL STAT 03/15/2025 8:02 AM EST ECG 12-LEAD STAT 03/15/2025 7:38 AM EST BI MAMMOGRAM SCREENING WITH TOMOSYNTHESIS WITH CAD (BILATERAL) Routine 05/27/2024 7:49 AM EST Encounter for gynecological examination without abnormal finding PAP TEST Routine 12/29/2023 12:00 AM EDT ENDOSCOPY, COLON 11/03/2022 9:42 AM EDT HEPATITIS C ANTIBODY, QUALITATIVE Routine 04/03/2020 10:32 AM EST Screen for STD (sexually transmitted disease) from Last 3 Months or Most Recently Relevant to Health Maintenance Results * D-Dimer (03/16/2025 11:05 AM EST) D-Dimer <215 <500 ng/mL FEU 03/16/2025 11:52 AM EST [facility] Comment: (Range) Below Test Range [215.000 - 7650.000] (Range) Below Linear Range A negative D-dimer result (at a cut off of 500 ng/mL FEU) when combined with a clinical assessment of low pretest probability has been shown to have a high negative predictive value for DVT or PE. Clinical correlation is required. Blood (Blood) Venipuncture / Unknown 03/16/2025 11:05 AM EST 03/16/2025 11:18 AM EST Marielos Moran MD, PhD LAB BLOOD BKR ORDER MANJULA Final Result Performing Organization Address City/[facility]/ZIP Co de Phone Number [address] [address] * (ABNORMAL) Troponin (03/16/2025 9:50 AM EST) Only the most recent of6 resultswithin the time period is included. Troponin-T HS Gen5 23(H) 0 - 9 ng/L 03/16/2025 10:16 AM EST [facility] Blood (Blood) Venipuncture / Unknown 03/16/2025 9:50 AM EST 03/16/2025 9:56 AM EST us Marielos Moran MD, PhD LAB BLOOD BKR ORDER MANJULA Final Result Performing Organization Address City/[facility]/ZIP Co de Phone Number [address] [address] * XR Chest Portable (03/16/2025 7:54 AM EST) Anatomical Region Laterality Modality Chest Computed Radiogr aphy 03/16/2025 8:22 AM EST Impressions 03/16/2025 8:26 AM EST Cardiac silhouette appears enlarged. ATTESTATION: Karime Connolly as teaching physician, have reviewed the images for this case and if necessary edited the report originally created by Babak Sorto. Narrative 03/16/2025 8:26 AM EST XR CHEST PORTABLE Referring clinician's provided indication for this examination in Epic: Pain COMPARISON: XR CHEST PORTABLE FINDINGS: Devices/Tubes/Lines: None. Lungs: No focal consolidation or pulmonary edema. Pleura: No pleural effusion or pneumothorax. Heart/Mediastinum: Cardiac silhouette appears enlarged. Bones/Soft Tissues: No significant abnormality. Procedure Note Karime Shankar MD - 03/16/2025 XR CHEST PORTABLE Referring clinician's provided indication for this examination in Epic:Pain COMPARISON: XR CHEST PORTABLE FINDINGS: Devices/Tubes/Lines: None. Lungs: No focal consolidation or pulmonary edema. Pleura: No pleural effusion or pneumothorax. Heart/Mediastinum: Cardiac silhouette appears enlarged. Bones/Soft Tissues: No significant abnormality. IMPRESSION: Cardiac silhouette appears enlarged. ATTESTATION: Karime Connolly as teaching physician, have reviewed theimages for this case and if necessary edited the report originally createdby Babak Sorto. us Marielos Moran MD, PhD IMG XR CHEST Fin al Result * CBC and Differential (03/16/2025 7:29 AM EST) Only the most recent of2 resultswithin the time period is included. WBC 5.07 4.00 - 11.00 K/uL 03/16/2025 7:41 AM [facility] RBC 4.58 4.00 - 5.20 M/uL 03/16/2025 7:41 AM [facility] Hemoglobin 13.5 12.0 - 16.0 g/dL 03/16/2025 7:41 AM [facility] Hematocrit 40.7 36.0 - 46.0 % 03/16/2025 7:41 AM [facility] MCV 88.9 80.0 - 100.0 fL 03/16/2025 7:41 AM [facility] MCH 29.5 27.0 - 31.0 pg 03/16/2025 7:41 AM [facility] MCHC 33.2 32.0 - 36.0 g/dL 03/16/2025 7:41 AM [facility] MPV 9.2 8.4 - 12.0 fL 03/16/2025 7:41 AM [facility] RDW-CV 12.1 11.5 - 14.5 % 03/16/2025 7:41 AM [facility] PLT 223 150 - 450 K/uL 03/16/2025 7:41 AM [facility] Neutrophils 57.4 % 03/16/2025 7:41 AM [facility] Lymphocytes 33.7 % 03/16/2025 7:41 AM [facility] Monocytes 6.7 % 03/16/2025 7:41 AM [facility] Eosinophils 1.4 % 03/16/2025 7:41 AM [facility] Basophils 0.4 % 03/16/2025 7:41 AM [facility] Imm Grans 0.4 % 03/16/2025 7:41 AM [facility] NRBC 0.0 <=0.0 /100 WBCs 03/16/2025 7:41 AM [facility] Absolute Neutrophils 2.91 1.92 - 7.60 K/uL 03/16/2025 7:41 AM [facility] Absolute Lymphocytes 1.71 0.72 - 4.10 K/uL 03/16/2025 7:41 AM [facility] Absolute Monocytes 0.34 0.16 - 1.10 K/uL 03/16/2025 7:41 AM [facility] Absolute Eosinophils 0.07 0.00 - 0.50 K/uL 03/16/2025 7:41 AM [facility] Absolute Basophils 0.02 0.00 - 0.15 K/uL 03/16/2025 7:41 AM [facility] Absolute Imm Grans 0.02 0.00 - 0.09 K/uL 03/16/2025 7:41 AM [facility] Absolute NRBC 0.00 <=0.00 K cells/uL 03/16/2025 7:41 AM [facility] Absolute Neutrophils 2.91 1.92 - 7.60 K/uL 03/16/2025 7:41 AM [facility] Comment:Automated cell count . Manual ANC may differ if performed. Diff Type Auto 03/16/2025 7:41 AM [facility] Blood (Blood) Venipuncture / Unknown 03/16/2025 7:29 AM EST 03/16/2025 7:36 AM EST us Marielos Moran MD, PhD LAB BLOOD BKR ORDER MANJULA Final Result [address] [address] * (ABNORMAL) Basic Metabolic Panel (BMP) (03/16/2025 7:29 AM EST) Only the most recent of2 resultswithin the time period is included. Sodium 141 136 - 145 mmol/L 03/16/2025 8:00 AM [facility] Potassium 4.6 3.4 - 5.1 mmol/L 03/16/2025 8:00 AM [facility] Chloride 104 98 - 107 mmol/L 03/16/2025 8:00 AM [facility] CO2 26 20 - 31 mmol/L 03/16/2025 8:00 AM [facility] Anion Gap 11 3 - 17 mmol/L 03/16/2025 8:00 AM [facility] BUN 13 6 - 23 mg/dL 03/16/2025 8:00 AM [facility] Creatinine 0.70 0.50 - 1.00 mg/dL 03/16/2025 8:00 AM [facility] eGFR 107 >59 mL/min/1.7 3m2 03/16/2025 8:00 AM [facility] Comment:Estimated glomerular filtration rate calculated using the CKD-EPI refit equation. Glucose 101(H) 70 - 99 mg/dL 03/16/2025 8:00 AM [facility] Calcium 9.5 8.5 - 10.5 mg/dL 03/16/2025 8:00 AM EST [facility] Blood (Blood) Venipuncture / Unknown 03/16/2025 7:29 AM EST 03/16/2025 7:36 AM EST us Marielos Moran MD, PhD LAB BLOOD BKR ORDER MANJULA Final Result Performing Organization Address [facility] Co de Phone Number [address] [address] * ECG 12-LEAD (03/16/2025 6:57 AM EST) Only the most recent of2 resultswithin the time period is included. Ventricular Rate EKG/MIN 88 BPM [facility] Atrial Rate 88 BPM [facility] TX Interval 162 ms [facility] QRS Duration 90 ms [facility] QT Interval 388 ms [facility] QTC Interval 469 ms [facility] P [place] -9 degrees [facility] R Wave [place] 34 degrees [facility] T Wave [place] 40 degrees [facility] 03/16/2025 6:57 AM EST 03/16/2025 2:09 PM EST Narrative [facility] - 03/16/2025 2:09 PM EST Normal sinus rhythm Normal ECG When compared with ECG of 15-Mar-2025 07:38, No significant change was found Confirmed by Umang Kwon ([id number]) on 03/16/2025 2:09:27 PM us Marielos Moran MD, PhD ECG ORDERABLES Fin al Result [facility] * XR Chest Portable (03/15/2025 8:32 AM EST) Anatomical Region Laterality Modality Chest Computed Radiogr aphy 03/15/2025 9:27 AM EST Impressions 03/15/2025 9:27 AM EST No acute abnormality. Narrative 03/15/2025 9:27 AM EST XR CHEST PORTABLE Referring clinician's provided indication for this examination in Epic: Pain COMPARISON: None FINDINGS: Devices/Tubes/Lines: None. Lungs: No focal consolidation or pulmonary edema. Pleura: No pleural effusion or pneumothorax. Heart/Mediastinum: Lordotic positioning accentuates the cardiomediastinal silhouette. Likely normal heart and mediastinum. Bones/Soft Tissues: No significant abnormality. Procedure Note Abe Almonte MD, MPH - 03/15/2025 XR CHEST PORTABLE Referring clinician's provided indication for this examination in [facility]:Pain COMPARISON: None FINDINGS: Devices/Tubes/Lines: None. Lungs: No focal consolidation or pulmonary edema. Pleura: No pleural effusion or pneumothorax. Heart/Mediastinum: Lordotic positioning accentuates the cardiomediastinalsilhouette. Likely normal heart and mediastinum. Bones/Soft Tissues: No significant abnormality. IMPRESSION: No acute abnormality. us Maximus Martin MD IMG XR CHEST Final Result * Lab Add-On (03/15/2025 8:05 AM EST) Specimen Date/Time 03/15/2025 8:12 AM [facility] Test Requested TSH w/reflex T4 03/15/2025 8:12 AM [facility] Specimen Description 03/15/2025 8:12 AM [facility] Comments 03/15/2025 8:12 AM [facility] Was this request processed? Yes 03/15/2025 8:12 AM [facility] Other (Other) 03/15/2025 8:0 5 AM EST 03/15/2025 8:05 AM EST us Maximus Martin MD LAB GENERAL ORDERABLES Final Re sult [facility] [address] [place] [address] * Human Chorionic Gonadotropin (HCG), Qualitative, Blood (03/15/2025 8:02 AM EST) hCG Qualitative Negative Negative 8:31 AM EST [facility] Blood (Blood) Venipuncture / Unknown 03/15/2025 8:02 AM EST 03/15/2025 8:09 AM EST us Maximus Martin MD LAB BLOOD BKR ORDERABLES Final Result Performing Organization Address [facility]/ZIP Co de Phone Number [address] [address] * Thyroid Stimulating Hormone (TSH), with Reflex (03/15/2025 8:02 AM EST) TSH 1.13 0.40 - 5.00 uIU/mL 03/15/2025 8:45 AM EST [facility] Blood (Blood) Venipuncture / Unknown 03/15/2025 8:02 AM EST 03/15/2025 8:09 AM EST us Maximus Martin MD LAB BLOOD BKR ORDERABLES Final Result Performing Organization Address City/[facility] Co de Phone Number [address] [address] * BI MAMMOGRAM SCREENING WITH TOMOSYNTHESIS WITH CAD (BILATERAL) (05/27/2024 7:49 AM EST) Anatomical Region Laterality Modality Breast Left, Breast Right, Breast Bilateral Bila teral Mammography 05/27/2024 9:44 AM EST Impressions 05/27/2024 9:45 AM EST No mammographic evidence of malignancy in either breast. Annual screening mammography is recommended. BI-RADS 1 NEGATIVE The patient will be notified of the results and recommendations. Narrative 05/27/2024 9:45 AM EST BI MAMMOGRAM SCREENING WITH TOMOSYNTHESIS WITH CAD (BILATERAL) Additional patient information: Screening. COMPARISON: Comparison is made with relevant prior imaging. Breast composition: There are scattered areas of fibroglandular density. FINDINGS: No abnormal masses, suspicious calcifications, or other significant findings are identified mammographically in either breast. There has been no significant interval change. Procedure Note Joyce Patel MD - 05/27/2024 BI MAMMOGRAM SCREENING WITH TOMOSYNTHESIS WITH CAD (BILATERAL) Additional patient information: Screening. COMPARISON: Comparison is made with relevant prior imaging. Breast composition: There are scattered areas of fibroglandular density. FINDINGS: No abnormal masses, suspicious calcifications, or other significantfindings are identified mammographically in either breast. There has been no significant interval change. IMPRESSION: No mammographic evidence of malignancy in either breast. Annual screening mammography is recommended. BI-RADS 1 NEGATIVE The patient will be notified of the results and recommendations. Purnima Epstein MD IMG MG EXAMS Final Result * Pap Test (12/29/2023 12:00 AM EDT) [place] [address] An/Sqq 89(V)15 Sonar System Journeyman: Jennifer Patel MD EQUIPMENT PROCESSER STORAGE Cytology Report FINAL DIAGNOSIS A. PAP SMEAR (THIN PREP) CE: SPECIMEN ADEQUACY: Satisfactory for evaluation; transformation zone present. INTERPRETATION: NEGATIVE FOR INTRAEPITHELIAL LESION OR MALIGNANCY. This specimen was analyzed by the automated ThinPrep Imaging System ([employer] and the selected perez were reviewed by a repairer kiln car. Electronically Signed Out By: OSCAR Bangura(ASCP) The Pap test is a screening test primarily for squamous cancers and precursors and has associated false-negative and false-positive results. New technologies such as liquid-based preparations may decrease but will not eliminate all false-negative results. Regular sampling and follow-up of unexplained clinical signs and symptoms are recommended to minimize false negative results. PROCEDURES/ADDENDA HPV Testing (Requested) Ordered Date: 12/30/2023 A. PAP SMEAR (THIN PREP) CE: Human Papilloma Virus Test NEGATIVE for high-risk Human Papilloma Virus types 16, 18, 45 and the Other high risk probe set (Includes 31, 33, 35, 39, 51, 52, 56, 58, 59, 66, 68) Note: Testing performed by [facility] [employer] HR-HPV analysis. Clinical correlation is advised. This HPV test was performed at [address] This test has been FDA approved for both SurePath and ThinPrep cervical cytology specimens. The accuracy and precision of this test for all other specimen sources has been verified in the Cytopathology Laboratory of the [facility] and has not been cleared or approved by the U.S. Food and Drug Administration. Clinical correlation is advised. CLINICAL HISTORY Date of Last Menstrual Period: Not Provided Menstrual History: Unknown Amrita-Menopausal Contraceptive History: IUD Other Clinical Conditions: Screening Pap SPECIMEN SOURCE A: PAP SMEAR (THIN PREP) CE Patient Name: VENECIA MANCERA : 1975 (Age: 48) Sex: F Institution: [facility] Location: [facility] Date of Collection: 12/29/2023 Date of Reported: 01/04/2024 08:21 Results to: Purnima Ayon [facility] Final Diagnosis A. PAP SMEAR (THIN PREP) CE: SPECIMEN ADEQUACY: Satisfactory for evaluation; transformation zone present. INTERPRETATION: NEGATIVE FOR INTRAEPITHELIAL LESION OR MALIGNANCY. This specimen was analyzed by the automated ThinPrep Imaging System ([employer] and the selected perez were reviewed by a repairer kiln car. [facility] Results\Inter pretation A. PAP SMEAR (THIN PREP) CE: Human Papilloma Virus TestNEGATIVE for high-risk Human Papilloma Virus types 16, 18, 45 and the Other high risk probe set (Includes 31, 33, 35, 39, 51, 52, 56, 58, 59, 66, 68)Note: Testing performed by [facility] [employer] HR-HPV analysis. Clinical correlation is advised. This HPV test was performed at [facility], [address] [place] [address]. This test has been FDA approved for both SurePath and ThinPrep cervical cytology specimens. The accuracy and precision of this test for all other specimen sources has been verified in the Cytopathology Laboratory of the [facility] and has not been cleared or approved by the U.S. Food and Drug Administration. Clinical correlation is advised. [facility] Conversion Type (Conversion Source) 12/29/2023 12/30/2023 9:42 AM EDT Purnima Epstein MD CYTOLOGY ORDER MANJULA Edited Result - Final [address] [address] * ENDOSCOPY, COLON (11/03/2022 9:42 AM EDT) Narrative Transcriptions Cyril Phan MD - 11/03/2022 9:42 AM EDT [facility] Patient Name: Venecia Ramirez Attending MD:: CYRIL PHAN MD, , Procedure Date: 11/03/2022 9:42 AM Date of : 1975 Age: 47 Admit Type: Outpatient Gender: Female Room: [place] [address] Referring MD: ANA MARIA VIEYRA DO Exam Type: Colonoscopy Indications: Screening for colorectal malignant neoplasm Medications: Monitored Anesthesia Care Procedure: Informed consent was obtained from the patientafter discussion of the indications, limitations, alternatives, benefits, and risks of the procedure. Risks specifically discussed include but are not limited to medication reactions, missed lesions, bleeding, perforation, or the need for emergent surgery. Throughout the procedure, the patient's blood pressure, pulse, end-tidal CO2, and oxygensaturations were monitored continuously. The Olympus adult variable colonoscope [id number] #2 was introduced through the anus and advanced to the cecum, identified by appendiceal orifice andileocecal valve. The colonoscopy was performed without difficulty. The patient tolerated the procedurewell. The quality of the bowel preparation was excellent. The quality of the bowel preparation was evaluated using the BBPS ([place] Bowel Preparation Scale)with scores of: Right Colon = 3, Transverse Colon = 3and Left Colon = 3 (entire mucosa seen well with no residual staining, small fragments of stool oropaque liquid). The total BBPS score equals 9. The qualityof the bowel preparation was evaluated using the BBPS ([place] Bowel Preparation Scale) with scores of:Right Colon = 3, Transverse Colon = 3 and Left Colon = 3 (entire mucosa seen well with no residual staining, small fragments of stool or opaque liquid). Thetotal BBPS score equals 9. Anatomical landmarks were photographed. Complications: No immediate complications. Estimated blood loss:None. Findings: The perianal and digital rectal examinations were normal. Internal hemorrhoids were found duringretroflexion. The hemorrhoids were mild. The exam was otherwise normal throughout theexamined colon. Impression: - Internal hemorrhoids. - No specimens collected. Recommendation: - Discharge patient to home. - Repeat colonoscopy in 10 years for screening purposes. CYRIL PHAN MD, 11/03/2022 10:04:37 AM This report has been signed electronically. Number of Addenda: 0 Note Initiated On: 11/03/2022 9:42 AM Procedure Code(s): --- Professional --- 26428, Colonoscopy, flexible; diagnostic, including collection of specimen(s) by brushing or washing, when performed (separateprocedure) --- Technical --- 02331, Colonoscopy, flexible; diagnostic, including collection of specimen(s) by brushing or washing, when performed (separateprocedure) Diagnosis Code(s): --- Professional --- Z12.11, Encounter for screening for malignantneoplasm of colon K64.8, Other hemorrhoids --- Technical --- Z12.11, Encounter for screening for malignantneoplasm of colon K64.8, Other hemorrhoids CPT copyright 2021 [employer] [place] [employer]. All rights reserved. The codes documented in this report are preliminary and upon appraiser oil and water reviewmay be revised to meet current compliance requirements. Procedure Date: 11/03/2022 9:42:[address] [place] [id number] us Ana Maria Vieyra DO GI PROCEDURE ORDERABLES Final Re sult * Hepatitis C antibody, qualitative (04/03/2020 10:32 AM EST) HCV NON-REACTIV E NON-REACTI VE [facility] Blood 04/03/2020 10:3 2 AM EST 04/03/2020 10:38 AM EST us Dena Roth MD LAB BLOOD BKR ORDERABLES Final R esult [facility] [address] [place] [address] from Last 3 Months or Most Recently Relevant to Health Maintenance Insurance [id number] [employer] [place] [address] [place] [address] CHOICE CHOICE CHOICE CHOICE CHOICE Care Teams Hiv Cts Specialist Relationship Specialty Start Date End Date Ana Maria Vieyra DO [address] [place] [id number] [email or web address] PCP - General Internal Medicine 08/20/24 Additional Source Comments The information contained in this document represents components of the legal health record. It is not the complete legal health record.[facility]
--- OUTSIDE RECORDS SUMMARY | 2025-04-04 13:02 | XMS_ITS | Encounter Summary ---
Author Organization [facility] Address [address] [place] [address] Phone Care Team Providers Care Medical Facilities Section Director Name Role Phone Alexis Tristan DO Primary Care Provider [phone] Alexis Tristan DO Primary Care Provider [phone] Encounter Details Date Type Department Care Team (Latest Contact Info) Description 03/02/2023 Transcribe Orders Virtual Department [address] [place] [address] Arianna Frazier PA [address] [place] [address] [address] [place] [address] Left shoulder pain, unspecified chronicity (Primary Dx) Social History Tobacco Use Types [...] documented as of this encounter Results * XR SHOULDER 2 VIEWS (LEFT) (03/03/2023 3:41 PM EST) Anatomical Region Laterality Modality Shoulder Left Computed Radiogr aphy 03/08/2023 1:30 PM EST Impressions 03/08/2023 1:31 PM EST Mild acromioclavicular joint degenerative change. Narrative 03/08/2023 1:31 PM EST XR SHOULDER 2 OR MORE VIEWS (LEFT) COMPARISON: None FINDINGS: BONE: No acute fracture or dislocation. GLENOHUMERAL JOINT: Joint spaces preserved. ACROMIOCLAVICULAR JOINT: Mild bony spurring. OTHER: No soft tissue swelling. Procedure Note Chavo Pereira MD - 03/08/2023 XR SHOULDER 2 OR MORE VIEWS (LEFT) COMPARISON: None FINDINGS: BONE: No acute fracture or dislocation. GLENOHUMERAL JOINT: Joint spaces preserved. ACROMIOCLAVICULAR JOINT: Mild bony spurring. OTHER: No soft tissue swelling. IMPRESSION: Mild acromioclavicular joint degenerative change. us Arianna WALTERS IMG XR UPPER EXTREMITY Alena l Result documented in this encounter Visit Diagnoses Diagnosis Left shoulder pain, unspecified chronicity- Primary Left shoulder pain, unspecified chronicity documented in this encounter Additional Health Concerns Infection Onset Date Last Indicated Resolved Time CoV-Risk 02/15/2024 02/24/2024 03/06/2024 1:21 AM EST documented as of this encounter Care Teams Medical Facilities Section Director Relationship Specialty Start Date End Date Alexis Tristan DO PCP - General Internal Medicine 05/08/19 08/19/24 Alexis Tristan DO [address] [place] [phone] PCP - General Internal Medicine 08/20/24 documented as of this encounter Additional Source Comments The information contained in this document represents components of the legal health record. It is not the complete legal health record.[facility]
[2025-04-04 13:54] LABS: MANUAL DIFF FLAG NO
[2025-04-04 13:57] LABS: Hematocrit 39.9 % (37.0-47.0); Hemoglobin 13.2 g/dl (12.0-16.0); Imm Gran Abs Auto 0.02 X10*3/uL (0.00-0.03); Imm Gran Pct Auto 0.3 % (0.0-0.4); Lymphocytes Absolute Auto 1.6 X10*3/uL (1.2-4.9); Mean Corpuscular HGB Conc 33.1 g/dl (31.0-35.0); Mean Corpuscular Hemoglobin 29.0 pg (27.0-33.0); Mean Corpuscular Volume 87.7 fL (80.0-98.0); NRBC Abs Auto 0.000 X10*3/uL (0.0-0.012); NRBC Pct Auto 0.0 /100WBC (0.0-0.2); Platelet Count 233 X10*3/uL (160-400); Red Blood Count 4.55 X10*6/uL (4.20-5.50); White Blood Count 6.7 X10*3/uL (4.8-10.8)
[2025-04-04 14:52] LABS: Alanine Aminotransferase 26 U/L (0-31); Albumin Level 4.5 g/dL (3.5-5.0); Alkaline Phosphatase 95 U/L (39-117); Anion Gap 10 (12-20); Aspartate Amino Transferase 23 U/L (5-31); Blood Urea Nitrogen 13 mg/dL (9-16); Calcium 10.0 mg/dL (8.4-10.2); Carbon Dioxide 30 mmol/L (22-29); Chloride 105 mmol/L (96-108); Estimated Glomerular Filt Rate > 60; Gamma Glutamyl Transpeptidase 23 U/L (7-33); Lipase 12 U/L (8-78); Magnesium 1.9 mg/dL (1.6-2.6); Potassium 4.4 mmol/L (3.3-5.1); Sodium 141 mmol/L (135-145); Total Protein 6.9 g/dL (6.5-8.0); Unsaturated Iron Binding 243 ug/dL
[2025-04-04 14:58] LABS: Amylase 36 U/L (28-100); Ferritin 98 ng/mL (10-250); Iron 71 mcg/dL (30-160); Percent Iron Saturation 23 % (15-50); Total Iron Binding Capacity 314 mcg/dL (228-428)
[2025-04-04 15:11] LABS: Folate 9.8 ng/mL (> or = 4.0); Vitamin B12 383 pg/mL (200-900)
== END 2025-04-04 11:39 | disposition home or self-care (01) ==
LOC: HO.MANLDS 11:38
PROVIDERS: Visit Provider Physician Assistant
DX: K21.9 Gastro-esophageal reflux disease without esophagitis (principal); R07.89 Other chest pain; Z13.29 Encounter for screening for other suspected endocrine disorder; Z13.0 Encounter for screening for diseases of the blood and blood-forming organs and certain disorders involving the immune mechanism
CPT/HCPCS: 36415; 80053; 82150; 82607; 82728; 82746; 82977; 83036; 83540; 83690; 83735; 84443; 85025; 85652; 86140